=== PATIENT | male | born 1955 | race Hispanic/Latino ===

== ENCOUNTER 2018-02-24 15:45 | Observation (INO) | payer OTHER ==
[~2018-02-24] VITALS: Ht 177.8 cm; Wt 101.7 kg
[2018-02-24 15:05] VITALS: BP 187/95
[2018-02-24 15:15] LABS: BASOPHILS % (AUTO) 0.9 % (0.0-5.0); EOSINOPHILS % (AUTO) 1.8 % (0.0-8.0); HEMATOCRIT 45.5 % (42-54); LYMPHOCYTES % (AUTO) 41.5 % (21.0-51.0); MEAN CORPUSCULAR HEMOGLOBIN 28.4 pg (27.0-33.0); MEAN CORPUSCULAR HGB CONC 32.6 g/dL (32.0-36.0); MEAN CORPUSCULAR VOLUME 87.2 fL (79-99); MONOCYTES % (AUTO) 6.3 % (3.0-13.0); NEUTROPHILS % (AUTO) 49.5 % (40.0-77.0); NUCLEATED RED BLOOD CELLS 0.1 % (0.0-0.19); PLATELET COUNT (AUTO) 291 K/uL (130-400); RED BLOOD CELL COUNT(AUTO) 5.22 MIL/uL (4.50-6.20); RED CELL DISTRIBUTION WIDTH 14.6 % (11.0-15.5); WHITE BLOOD COUNT (AUTO) 9.4 K/uL (4.8-10.8)
[2018-02-24 15:18] LABS: APPEARANCE,URINE Clear (CLEAR); BILIRUBIN,URINE Negative (NEGATIVE); COLOR,URINE Yellow (YELLOW); GLUCOSE, URINE (UA) Negative (NEGATIVE); KETONES,URINE Negative (NEGATIVE); LEUKOCYTE ESTERASE ,URINE Negative (NEGATIVE); NITRATE,URINE Negative (NEGATIVE); OCCULT BLOOD,URINE Moderate (NEGATIVE); PROTEIN,URINE Negative (NEGATIVE); UROBILINOGEN,URINE 0.2 mg/dL (0.2-1.0)
[2018-02-24 15:23] LABS: CREATININE 2.1 mg/dL (0.5-1.5); POTASSIUM 4.5 mmol/L (3.5-5.1)
[2018-02-24 15:26] LABS: INR 0.95 (0.85-1.15)
[~2018-02-24 15:45] MED LIST: ATOR10TA69 PO; CHOL100040 PO; FOLI1TAB85 PO; SODI650T PO; VALS80TA30 PO
[2018-02-25] VITALS (22 sets, daily range): BP systolic 124–162; BP diastolic 56–105
[2018-02-25] MEDS ORDERED: ROCURONIUM 10MG/1ML SYR 10 MG/ML ML ONE ×2 (07:51→11:24)
[2018-02-25] MEDS ORDERED: SUCCINYLCHOLINE CHLORIDE 20 MG/ML 10 ML VIAL ONE (07:51)
[2018-02-25] MEDS ORDERED: PROPOFOL 10 MG/ML 20ML VIAL IV ONE (07:51)
[2018-02-25] MEDS ORDERED: LIDOCAINE PF 2% 5ML ABBOJECT ONE (07:51)
[2018-02-25] MEDS ORDERED: FENTANYL CITRATE PF 50 MCG/1 ML 2ML VIAL ONE ×2 (07:51→11:53)
[2018-02-25] MEDS ORDERED: LACTATED RINGERS 1000ML 1,000 ML IV ONE (08:22)
[2018-02-25] MEDS ORDERED: CEFAZOLIN SODIUM 1 GM VIAL ONE ×3 (08:22→09:32)
[2018-02-25] MEDS ORDERED: ACETAMINOPHEN EXTRA STRENGTH 500 MG TABLET ONE (08:25)
[2018-02-25] MEDS ORDERED: CELECOXIB 200 MG CAP ONE (08:25)
[2018-02-25] MEDS ORDERED: OXYCODONE HCL 10 MG TAB.SR.12H PO ONE (08:26)
[2018-02-25] MEDS ORDERED: CEFAZOLIN 3GM /D5W 100ML 100 ML IV ONE (08:30)
[2018-02-25] MEDS ORDERED: BUPIVACAINE/EPI/PF 0.25% 30ML VIAL IJ ONE (08:37)
[2018-02-25] MEDS ORDERED: TRANEXAMIC ACID 1000MG/10ML IV ONE (08:37)
[2018-02-25] MEDS ORDERED: ROPIVACAINE 0.5% 5MG/ML 30ML IJ ONE (10:11)
[2018-02-25] MEDS ORDERED: EPHEDRINE SULFATE 50 MG/ML AMPULE ONE (10:47)
[2018-02-25] MEDS ORDERED: DEXAMETHASONE SOD PHOSPHATE 10MG/ML 1ML VIAL ONE (12:14)
[2018-02-25] MEDS ORDERED: ONDANSETRON HCL 4 MG/2 ML VIAL ONE (12:14)
[2018-02-25] MEDS ORDERED: KETOROLAC TROMETHAMINE 30MG/ML ONE (12:14)
[2018-02-25] MEDS: SODIUM CHLORIDE 0.9% 1000ML 1,000 ML IV SCH (12:18)
[2018-02-25] MEDS ORDERED: GLYCOPYRROLATE 1 MG/5 ML SYRINGE ONE (12:19)
[2018-02-25] MEDS ORDERED: NEOSTIGMINE 5MG/5ML SYR IV ONE (12:19)
[2018-02-25] MEDS ORDERED: DiphenhydrAMINE HCL 50 MG/ML VIAL IVP PRN (12:30)
[2018-02-25] MEDS ORDERED: TEMAZEPAM 15 MG CAPSULE PO PRN (12:30)
[2018-02-25] MEDS ORDERED: TRAMADOL HCL 50 MG TABLET PO PRN (12:30)
[2018-02-25] MEDS ORDERED: POTASSIUM CHLORIDE 20MEQ/100ML 100 ML IV PRN (12:30)
[2018-02-25] MEDS ORDERED: FERROUS FUMARATE 324 MG TABLET PO PRN (12:30)
[2018-02-25] MEDS ORDERED: CALCIUM CARBONATE 500 MG TABLET PO PRN (12:30)
[2018-02-25] MEDS ORDERED: POTASSIUM CHLORIDE 20 MEQ ERTAB PO PRN (12:30)
[2018-02-25] MEDS ORDERED: LIDOCAINE HCL-MPF 1% 2ML VIAL IVP PRN (12:30)
[2018-02-25] MEDS ORDERED: POTASSIUM CHLORIDE 10% ELIXIR 20 MEQ/15 ML UDCUP PO PRN (12:30)
[2018-02-25] MEDS ORDERED: ONDANSETRON HCL 4 MG/2 ML VIAL IVP PRN (12:30)
[2018-02-25] MEDS ORDERED: FENTANYL CITRATE PF 50 MCG/1 ML 5ML AMP IV ONE (12:39)
[2018-02-25] MEDS ORDERED: MEPERIDINE-PF 25 MG/ML SYG ONE ×2 (13:23→13:35)
[2018-02-25] MEDS: OXYCODONE HCL 5 MG TAB PO PRN ×2 (15:04→20:23)
[2018-02-25] MEDS: FAMOTIDINE 20MG TAB 20 MG TAB PO SCH (15:21)
[2018-02-25] MEDS: ACETAMINOPHEN EXTRA STRENGTH 500 MG TABLET PO SCH ×2 (15:22→20:29)
[2018-02-25] MEDS: CEFAZOLIN 3GM /D5W 100ML 100 ML IV SCH (17:54)
[2018-02-25] MEDS: PREGABALIN 25 MG CAP PO SCH (20:21)
[2018-02-25] MEDS: ASPIRIN 325 MG TABLET PO SCH (20:21)
[2018-02-25] MEDS: CELECOXIB 200 MG CAP PO SCH (20:22)
[2018-02-25] MEDS: LOSARTAN 50 MG TABLET PO SCH (20:22)
[2018-02-25] MEDS ORDERED: ATORVASTATIN CALCIUM 10 MG TABLET PO SCH (21:00)
[2018-02-25] MEDS ORDERED: FOLIC ACID/VITAMIN B COMP W-C 1 MG CAPSULE PO SCH (21:00)
[2018-02-26 00:05] VITALS: BP 160/103
[2018-02-26] MEDS: CEFAZOLIN 3GM /D5W 100ML 100 ML IV SCH (01:08)
[2018-02-26] MEDS: SODIUM CHLORIDE 0.9% 1000ML 1,000 ML IV SCH ×2 (01:08→08:18)
[2018-02-26 04:06] LABS: HEMATOCRIT 37.5 % (42-54); MEAN CORPUSCULAR HEMOGLOBIN 28.8 pg (27.0-33.0); MEAN CORPUSCULAR HGB CONC 33.1 g/dL (32.0-36.0); MEAN CORPUSCULAR VOLUME 86.8 fL (79-99); PLATELET COUNT (AUTO) 209 K/uL (130-400); RED BLOOD CELL COUNT(AUTO) 4.32 MIL/uL (4.50-6.20); RED CELL DISTRIBUTION WIDTH 14.8 % (11.0-15.5); WHITE BLOOD COUNT (AUTO) 11.1 K/uL (4.8-10.8)
[2018-02-26 04:10] LABS: CREATININE 2.1 mg/dL (0.5-1.5); POTASSIUM 4.5 mmol/L (3.5-5.1)
[2018-02-26 04:45] VITALS: BP 160/95
[2018-02-26] MEDS: ACETAMINOPHEN EXTRA STRENGTH 500 MG TABLET PO SCH ×2 (04:45→13:07)
[2018-02-26 07:57] VITALS: BP 148/94
[2018-02-26] MEDS: CELECOXIB 200 MG CAP PO SCH (08:23)
[2018-02-26] MEDS: PREGABALIN 25 MG CAP PO SCH (08:24)
[2018-02-26] MEDS: FAMOTIDINE 20MG TAB 20 MG TAB PO SCH (08:24)
[2018-02-26] MEDS: ASPIRIN 325 MG TABLET PO SCH (08:25)
[2018-02-26] MEDS: LOSARTAN 50 MG TABLET PO SCH ×2 (08:25→13:07)
[2018-02-26] MEDS: OXYCODONE HCL 5 MG TAB PO PRN ×2 (08:25→13:08)
[2018-02-26] MEDS ORDERED: TAMSULOSIN HCL 0.4 MG CAP.ER.24H PO SCH (09:00)
[2018-02-26] MEDS ORDERED: POLYETHYLENE GLYCOL 3350 17 GM POWD.PACK PO SCH (09:00)
[2018-02-26] MEDS ORDERED: **HM**(Cholecalciferol (Vitamin D3) (Vitamin D3) 1,000 UNIT PO SCH (09:00)
[2018-02-26] MEDS ORDERED: SODIUM BICARBONATE 650 MG TAB PO SCH (09:00)
[2018-02-26 11:00] VITALS: BP 151/95
[2018-02-26 16:00] VITALS: BP 160/99
[2018-02-26] MEDS ORDERED: ASPI-1012 PO (19:03)
[2018-02-26] MEDS ORDERED: HYDR-4457 PO (19:03)
[2018-02-28] MEDS ORDERED: BISACODYL 10 MG SUPP.RECT RC PRN (12:30)
== END 2018-02-26 20:00 | disposition home health service (06) ==
LOC: EDSTATUS 15:45 → DAHIP 02-25 06:56 → 4BH 02-25 14:20
PROVIDERS: ADMIT Orthopaedic Surgery; ATTEND Orthopaedic Surgery
DX: M17.11 Unilateral primary osteoarthritis, right knee (principal); I10 Essential (primary) hypertension; E78.5 Hyperlipidemia, unspecified; M10.9 Gout, unspecified; G89.29 Other chronic pain
CPT/HCPCS: 27447; 36415 ×2; 80048 ×2; 81003; 85025; 85027; 85610; 85730; 88305; 88311; 96365; 96366; 97116 ×2; 97161; 97530 ×2; A4215; A4600; A4649 ×5; A4930 ×2; A9272; C1763; C1776; G0378 ×38; G8978; G8979; G8980; G8981; G8982; G8983; J0330; J0690 ×5; J1100; J1885; J2001; J2175 ×2; J2405; J2704; J2710; J2795; J3010 ×2; J3490 ×4; J7030; J7120

== ENCOUNTER 2018-09-10 18:57 | Inpatient (IN) | payer OTHER ==
[~2018-09-10] VITALS: Ht 175.3 cm; Wt 102.5 kg
[~2018-09-10 18:57] MED LIST changes: +ASPI-1012 PO; +HYDR-4457 PO
[2018-09-10 19:45] VITALS: BP 133/85
[2018-09-10] MEDS ORDERED: AMLO5TAB9 PO (19:50)
[2018-09-10] MEDS ORDERED: CYCL50CA3 PO (19:50)
[2018-09-10] MEDS ORDERED: DEXA4TAB PO (19:50)
[2018-09-10] MEDS ORDERED: ALLO100T PO (19:50)
[2018-09-10] MEDS ORDERED: HYDROCODONE/ACETAMINOPHEN 5/325 MG TAB ONE (20:02)
[2018-09-10 20:58] LABS: INR 0.95 (0.85-1.15); PARTIAL THROMBOPLASTIN TIME 26.4 SEC (26.3-35.5)
[2018-09-10] MEDS: ATORVASTATIN CALCIUM 10 MG TABLET PO SCH (21:00)
[2018-09-10] MEDS ORDERED: LOSARTAN 50 MG TABLET PO SCH (21:00)
[2018-09-10] MEDS: FOLIC ACID/VITAMIN B COMP W-C 1 MG CAPSULE PO SCH (21:00)
[2018-09-10 21:02] LABS: ALBUMIN 2.8 g/dL (3.5-5.0); BILIRUBIN,TOTAL 0.3 mg/dL (0.2-1.0); CREATININE 2.1 mg/dL (0.5-1.5); POTASSIUM 3.7 mmol/L (3.5-5.1)
[2018-09-10] MEDS ORDERED: SODIUM CHLORIDE 0.9% 1000ML 1,000 ML IV SCH (21:15)
[2018-09-10] MEDS ORDERED: MORPHINE SULFATE 2 MG/ML 1ML SYG IVP PRN (21:15)
[2018-09-10] MEDS ORDERED: HYDROCODONE/ACETAMINOPHEN 5/325 MG TAB PO PRN ×2 (21:15)
[2018-09-10] MEDS ORDERED: ACETAMINOPHEN 325 MG TAB PO PRN (21:15)
[2018-09-10] MEDS ORDERED: ENOXAPARIN SODIUM 30 MG/0.3 ML SQ SCH (21:15)
[2018-09-10] MEDS ORDERED: PHARMACY COMMUNICATION MISC SCH (21:15)
[2018-09-10] MEDS ORDERED: ONDANSETRON HCL 4 MG/2 ML VIAL IVP PRN (21:15)
[2018-09-10] MEDS: SODIUM BICARBONATE 650 MG TAB PO SCH (22:18)
[2018-09-10 23:28] VITALS: BP 97/38
[2018-09-11] VITALS (20 sets, daily range): BP systolic 113–172; BP diastolic 71–104
--- NOTE | 2018-09-11 08:06 | NUR ---
NOTIFIED DR PENNINGTON OF CONSULT VIA TELEPHONE.
[2018-09-11] MEDS: LOSARTAN 50 MG TABLET PO SCH (08:31)
[2018-09-11] MEDS: AMLODIPINE BESYLATE 5 MG TAB PO SCH (08:31)
[2018-09-11] MEDS: CHOLECALCIFEROL 1000 UNIT PO SCH (08:31)
[2018-09-11] MEDS: ALLOPURINOL 100 MG TABLET PO SCH (08:32)
[2018-09-11] MEDS: SODIUM BICARBONATE 650 MG TAB PO SCH ×2 (08:32→22:42)
[2018-09-11] MEDS ORDERED: PANTOPRAZOLE SODIUM 40 MG TABLET.DR PO SCH (09:00)
--- NOTE | 2018-09-11 12:48 | NUR ---
DC PLAN VISITED WITH PATIENT. PATIENT LIVES ALONE. INDEPENDENT ABLE TO PERFORM ADL'S. PATIENT HAS NO SERVICES. WALKER AT HOME. FEELS SAFE TO RETURN HOME. Addendum: 09/11/18 at 1250 by JESUS MANUEL MORENO RN CM Amended: Links added.
[2018-09-11] MEDS ORDERED: CEFAZOLIN SODIUM 1 GM VIAL ONE (14:23)
[2018-09-11] MEDS ORDERED: VANCOMYCIN HCL 1 GM VIAL ONE ×2 (14:23→16:21)
--- NOTE | 2018-09-11 15:00 | NUR ---
Pt admitted to drinking "1/2 cup" h2o @ 1315, even though he knew he was NPO for surgery. Reported to Dr. Parham who stated it would not interfere with surgery.
--- NOTE | 2018-09-11 15:05 | NUR ---
Pt wheeled via hospital bed to OR Holding by OR staff. Pt in stable condition at time of transfer. Accompanied by family member.
[2018-09-11] MEDS ORDERED: TRANEXAMIC ACID 1000MG/10ML IV ONE (15:44)
[2018-09-11] MEDS ORDERED: VANCOMYCIN PROTOCOL PER PHARMACY IV SCH (16:00)
[2018-09-11] MEDS ORDERED: SUCCINYLCHOLINE 200MG/10ML SYR ONE (16:11)
[2018-09-11] MEDS ORDERED: LIDOCAINE PF 2% 5ML ABBOJECT ONE (16:11)
[2018-09-11] MEDS ORDERED: PROPOFOL 10 MG/ML 20ML VIAL IV ONE (16:11)
[2018-09-11] MEDS ORDERED: ROCURONIUM 10MG/1ML SYR 10 MG/ML ML ONE ×2 (16:12→19:08)
[2018-09-11] MEDS ORDERED: FENTANYL CITRATE PF 50 MCG/1 ML 2ML VIAL ONE ×3 (16:12→20:01)
[2018-09-11] MEDS ORDERED: HYDROMORPHONE 1 MG/1 ML AMP ONE (16:18)
[2018-09-11] MEDS ORDERED: MIDAZOLAM HCL 1 MG/ML 2ML VIAL ONE (16:19)
[2018-09-11] MEDS ORDERED: VANCOMYCIN 1GM+NS 250ML 250 ML IV ONE (16:31)
[2018-09-11] MEDS ORDERED: COMPOUND IV REFRIGERATED 1 EACH IVSOLN MISC PRN (16:45)
[2018-09-11] MEDS ORDERED: NEOSTIGMINE 5MG/5ML SYR IV ONE (19:53)
[2018-09-11] MEDS ORDERED: GLYCOPYRROLATE 1 MG/5 ML SYRINGE ONE (19:53)
[2018-09-11] MEDS ORDERED: KETOROLAC TROMETHAMINE 30MG/ML ONE (19:55)
[2018-09-11] MEDS ORDERED: ONDANSETRON HCL 4 MG/2 ML VIAL ONE (19:59)
[2018-09-11] MEDS ORDERED: LIDOCAINE HCL-MPF 1% 2ML VIAL IVP PRN (20:00)
[2018-09-11] MEDS ORDERED: DiphenhydrAMINE HCL 50 MG/ML VIAL IVP PRN (20:00)
[2018-09-11] MEDS ORDERED: POTASSIUM CHLORIDE 10% ELIXIR 20 MEQ/15 ML UDCUP PO PRN (20:00)
[2018-09-11] MEDS ORDERED: POTASSIUM CHLORIDE 20MEQ/100ML 100 ML IV PRN (20:00)
[2018-09-11] MEDS ORDERED: ONDANSETRON HCL 4 MG/2 ML VIAL IVP PRN (20:00)
[2018-09-11] MEDS ORDERED: CALCIUM CARBONATE 500 MG TABLET PO PRN (20:00)
[2018-09-11] MEDS ORDERED: POTASSIUM CHLORIDE 20 MEQ ERTAB PO PRN (20:00)
[2018-09-11] MEDS ORDERED: FERROUS FUMARATE 324 MG TABLET PO PRN (20:00)
[2018-09-11] MEDS ORDERED: OXYCODONE HCL 5 MG TAB PO PRN (20:00)
[2018-09-11] MEDS ORDERED: TRAMADOL HCL 50 MG TABLET PO PRN (20:00)
[2018-09-11] MEDS ORDERED: TEMAZEPAM 15 MG CAPSULE PO PRN (20:00)
[2018-09-11] MEDS ORDERED: HYDRALAZINE HCL 20 MG/ML VIAL ONE (20:29)
[2018-09-11] MEDS ORDERED: ACETAMINOPHEN 325 MG TAB PO PRN (21:00)
[2018-09-11 21:19] LABS: APPEARANCE BODY FLUID CLOUDY (CLEAR); COLOR,BODY FLUID DARK YELLOW (LT YELLOW); SPECIMENTYPE,BODY FLUID SYNOVIAL; TOTAL VOLUME,BODY FLUID 28 mL
[2018-09-11 21:22] LABS: BODY FLUID RBC 2650 /cu. mm.; BODY FLUID WBC 6998 /cu. mm.
[2018-09-11 21:42] LABS: BF LYMPHOCYTE 3 %
[2018-09-11] MEDS: ATORVASTATIN CALCIUM 10 MG TABLET PO SCH (22:42)
[2018-09-11] MEDS: FOLIC ACID/VITAMIN B COMP W-C 1 MG CAPSULE PO SCH (22:42)
[2018-09-11] MEDS: ASPIRIN 325 MG TABLET PO SCH (22:42)
[2018-09-11] MEDS: CELECOXIB 200 MG CAP PO SCH (22:42)
[2018-09-11] MEDS: PREGABALIN 25 MG CAP PO SCH (22:42)
[2018-09-11] MEDS: ACETAMINOPHEN EXTRA STRENGTH 500 MG TABLET PO SCH (22:48)
[2018-09-12] VITALS (9 sets, daily range): BP systolic 104–149; BP diastolic 61–86
[2018-09-12] MEDS: CEFEPIME HCL 1 GM VIAL IVP SCH ×3 (01:00→15:43)
[2018-09-12] MEDS: SODIUM CHLORIDE 0.9% 1000ML 1,000 ML IV SCH ×3 (01:01→15:44)
[2018-09-12 04:07] LABS: BASOPHILS % (AUTO) 0.3 % (0.0-5.0); EOSINOPHILS % (AUTO) 0.3 % (0.0-8.0); HEMATOCRIT 31.9 % (42-54); LYMPHOCYTES % (AUTO) 15.2 % (21.0-51.0); MEAN CORPUSCULAR HGB CONC 33.5 g/dL (32.0-36.0); MEAN CORPUSCULAR VOLUME 89.4 fL (79-99); MONOCYTES % (AUTO) 6.8 % (3.0-13.0); NEUTROPHILS % (AUTO) 77.4 % (40.0-77.0); PLATELET COUNT (AUTO) 188 K/uL (130-400); RED BLOOD CELL COUNT(AUTO) 3.57 MIL/uL (4.50-6.20); RED CELL DISTRIBUTION WIDTH 16.7 % (11.0-15.5); WHITE BLOOD COUNT (AUTO) 7.5 K/uL (4.8-10.8)
[2018-09-12 04:17] LABS: CREATININE 1.8 mg/dL (0.5-1.5); POTASSIUM 4.2 mmol/L (3.5-5.1)
[2018-09-12] MEDS: ACETAMINOPHEN EXTRA STRENGTH 500 MG TABLET PO SCH ×3 (04:35→20:43)
[2018-09-12 05:11] LABS: ERYTHROCYTE SEDIMENTATION RATE 50 MM/HR (0-20)
[2018-09-12] MEDS: CHOLECALCIFEROL 1000 UNIT PO SCH (09:00)
[2018-09-12] MEDS: ASPIRIN 325 MG TABLET PO SCH ×2 (09:41→20:40)
[2018-09-12] MEDS: LOSARTAN 50 MG TABLET PO SCH (09:42)
[2018-09-12] MEDS: TAMSULOSIN HCL 0.4 MG CAP.ER.24H PO SCH (09:42)
[2018-09-12] MEDS: SODIUM BICARBONATE 650 MG TAB PO SCH ×2 (09:42→20:39)
[2018-09-12] MEDS: AMLODIPINE BESYLATE 5 MG TAB PO SCH (09:42)
[2018-09-12] MEDS: CELECOXIB 200 MG CAP PO SCH ×2 (09:42→20:40)
[2018-09-12] MEDS: PREGABALIN 25 MG CAP PO SCH ×2 (09:42→20:39)
[2018-09-12] MEDS: FAMOTIDINE 20MG TAB 20 MG TAB PO SCH (09:42)
[2018-09-12] MEDS: POLYETHYLENE GLYCOL 3350 17 GM POWD.PACK PO SCH (09:42)
[2018-09-12] MEDS: ALLOPURINOL 100 MG TABLET PO SCH (09:42)
[2018-09-12] MEDS: VANCOMYCIN 1.5 GM in SODIUM CHLORIDE 0.9% 250 ML IV SCH (15:44)
[2018-09-12] MEDS: ATORVASTATIN CALCIUM 10 MG TABLET PO SCH (20:39)
[2018-09-12] MEDS: FOLIC ACID/VITAMIN B COMP W-C 1 MG CAPSULE PO SCH (20:40)
[2018-09-13] MEDS: CEFEPIME HCL 1 GM VIAL IVP SCH ×3 (01:01→21:17)
[2018-09-13 03:14] VITALS: BP 117/71
[2018-09-13] MEDS: ACETAMINOPHEN EXTRA STRENGTH 500 MG TABLET PO SCH ×3 (03:52→21:14)
[2018-09-13 08:00] VITALS: BP 93/51
[2018-09-13] MEDS: LOSARTAN 50 MG TABLET PO SCH (08:07)
[2018-09-13] MEDS: AMLODIPINE BESYLATE 5 MG TAB PO SCH (08:08)
[2018-09-13] MEDS: ASPIRIN 325 MG TABLET PO SCH (08:13)
[2018-09-13] MEDS: CELECOXIB 200 MG CAP PO SCH ×2 (08:13→21:13)
[2018-09-13] MEDS: PREGABALIN 25 MG CAP PO SCH ×2 (08:13→21:14)
[2018-09-13] MEDS: SODIUM BICARBONATE 650 MG TAB PO SCH ×2 (08:14→21:13)
[2018-09-13] MEDS: POLYETHYLENE GLYCOL 3350 17 GM POWD.PACK PO SCH (08:14)
[2018-09-13] MEDS: FAMOTIDINE 20MG TAB 20 MG TAB PO SCH (08:14)
[2018-09-13] MEDS: TAMSULOSIN HCL 0.4 MG CAP.ER.24H PO SCH (08:17)
[2018-09-13] MEDS: CHOLECALCIFEROL 1000 UNIT PO SCH (08:18)
[2018-09-13] MEDS: ALLOPURINOL 100 MG TABLET PO SCH (08:42)
--- NOTE | 2018-09-13 11:30 | NUR ---
RASH RASH NOTED TO BILATERAL UPPER THIGH AREA AND SPREADS TO LOWER ABDOMEN AND LOWER TRUNK. PATIENT REPORTS NO ITCHING, BURNING, OR DISCOMFORTS. PATIENT STATES "I ONLY NOTICED IT WAS THERE BY SEEING IT, BUT I DON'T FEEL ANYTHING." PATIENT REPORTS USING SOAP TO AREA AND REPORTS HISTORY OF SENSITIVITY TO CERTAIN BODY SOAPS. CALLED DR. AARON TO REPORT PATIENT SYMPTOMS. MD REPLIED TO CONTINUE TO MONITOR RASH AND LESA THE AREA TO NOTE IF ITS SPREADING. USED BLACK MARKER TO LESA RASH AT CONCENTRATED AREAS.
[2018-09-13 11:39] VITALS: BP 145/85
--- NOTE | 2018-09-13 13:30 | NUR ---
WOUND DRESSING PERFORMED RIGHT KNEE DRESSING CHANGE PER MD ORDER. REMOVED HEMOVAC, DRAIN TIP INTACT. PATIENT TOLERATED PROCEDURE WELL. REAPPLIED TARA BANDAGE AFTER DRESSING CHANGE.
--- NOTE | 2018-09-13 15:00 | NUR ---
PICC LINE PATIENT CURRENTLY GETTING PICC LINE PLACED
--- NOTE | 2018-09-13 15:45 | NUR ---
5 Fr 2 lumen Picc line placed to right basilic vein. Good blood return and flushed without any resistance. Chest X ray obtained, pending interpretation from radiologist.
[2018-09-13 16:00] VITALS: BP 135/72
--- NOTE | 2018-09-13 16:00 | NUR ---
Report on the Picc line was given to primary care nurse Valentina CAMPOS
--- NOTE | 2018-09-13 16:25 | NUR ---
Spoke to Dr Parham and informed of Picc line placement, he ok'ed to use it
[2018-09-13] MEDS: VANCOMYCIN 1.5 GM in SODIUM CHLORIDE 0.9% 250 ML IV SCH (17:13)
--- NOTE | 2018-09-13 17:40 | NUR ---
D/C PLAN CM spoke to pt regarding d/c planning. 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 Pt prefers to d/c home with home health. CM explained that if d/c with IV Vanco, will more than likely recommend [facility]. Pt and spouse voiced difficulty in transporting due to mobility. CM offered in network short term snf/rehab options as well. Pt and family undecided about plan. CM to f/u once final abx recommendations made by ID. Addendum: 09/13/18 at 1743 by RASHAUN DESIR CM Amended: Links added.
[2018-09-13 19:25] VITALS: BP 136/72
[2018-09-13] MEDS: APIXABAN 2.5 MG TABLET PO SCH (21:13)
[2018-09-13] MEDS: FOLIC ACID/VITAMIN B COMP W-C 1 MG CAPSULE PO SCH (21:13)
[2018-09-13] MEDS: ATORVASTATIN CALCIUM 10 MG TABLET PO SCH (21:13)
[2018-09-13 23:36] VITALS: BP 154/80
[2018-09-14 03:49] VITALS: BP 150/90
[2018-09-14] MEDS: CEFEPIME HCL 1 GM VIAL IVP SCH ×3 (04:53→19:31)
[2018-09-14] MEDS: ACETAMINOPHEN EXTRA STRENGTH 500 MG TABLET PO SCH ×3 (04:56→19:32)
[2018-09-14 05:22] LABS: BASOPHILS % (AUTO) 1.1 % (0.0-5.0); EOSINOPHILS % (AUTO) 2.4 % (0.0-8.0); HEMATOCRIT 31.2 % (42-54); MEAN CORPUSCULAR HEMOGLOBIN 29.7 pg (27.0-33.0); MEAN CORPUSCULAR HGB CONC 33.3 g/dL (32.0-36.0); MEAN CORPUSCULAR VOLUME 89.2 fL (79-99); MONOCYTES % (AUTO) 6.9 % (3.0-13.0); NEUTROPHILS % (AUTO) 64.6 % (40.0-77.0); NUCLEATED RED BLOOD CELLS 0.1 % (0.0-0.19); PLATELET COUNT (AUTO) 214 K/uL (130-400); RED BLOOD CELL COUNT(AUTO) 3.49 MIL/uL (4.50-6.20); RED CELL DISTRIBUTION WIDTH 16.9 % (11.0-15.5); WHITE BLOOD COUNT (AUTO) 5.6 K/uL (4.8-10.8)
[2018-09-14 05:29] LABS: CREATININE 1.9 mg/dL (0.5-1.5); POTASSIUM 3.9 mmol/L (3.5-5.1)
[2018-09-14 08:00] VITALS: BP 152/88
--- NOTE | 2018-09-14 08:00 | NUR ---
dr. oglesby aware of pt's rash - and redness stated might be due to using soap yesterday stated , no more soap to that area, just water will continue to monitor
[2018-09-14] MEDS: POLYETHYLENE GLYCOL 3350 17 GM POWD.PACK PO SCH (08:25)
[2018-09-14] MEDS: APIXABAN 2.5 MG TABLET PO SCH ×2 (08:26→19:33)
[2018-09-14] MEDS: SODIUM BICARBONATE 650 MG TAB PO SCH ×2 (08:27→19:31)
[2018-09-14] MEDS: AMLODIPINE BESYLATE 5 MG TAB PO SCH (08:27)
[2018-09-14] MEDS: PREGABALIN 25 MG CAP PO SCH ×2 (08:27→19:33)
[2018-09-14] MEDS: FAMOTIDINE 20MG TAB 20 MG TAB PO SCH (08:27)
[2018-09-14] MEDS: CELECOXIB 200 MG CAP PO SCH ×2 (08:27→19:33)
[2018-09-14] MEDS: ALLOPURINOL 100 MG TABLET PO SCH (08:27)
[2018-09-14] MEDS: TAMSULOSIN HCL 0.4 MG CAP.ER.24H PO SCH (08:28)
[2018-09-14] MEDS: LOSARTAN 50 MG TABLET PO SCH (08:28)
[2018-09-14] MEDS: CHOLECALCIFEROL 1000 UNIT PO SCH (08:37)
[2018-09-14 11:00] VITALS: BP 147/92
--- NOTE | 2018-09-14 13:51 | NUR ---
DR. MERRITT ROUNDED, AWARE OF PT'S RASH STATED WILL KEEP PATIENT TODAY, AND MONITOR THE RASH TO RULE OUT AN ADVERSE REACTION TO THE ANTIBIOTICS
[2018-09-14 16:00] VITALS: BP 124/71
[2018-09-14] MEDS: VANCOMYCIN 1.5 GM in SODIUM CHLORIDE 0.9% 250 ML IV SCH (16:58)
--- NOTE | 2018-09-14 18:35 | NUR ---
DR. AARON STATED TO D/C THE ROUTINE LABS ON THIS PATIENT EXCEPT THE ONES NEEDED FOR ANTIBIOTIC THERAPEUTIC RANGE
[2018-09-14] MEDS: FOLIC ACID/VITAMIN B COMP W-C 1 MG CAPSULE PO SCH (19:33)
[2018-09-14 19:35] VITALS: BP 144/82
[2018-09-14] MEDS: ATORVASTATIN CALCIUM 10 MG TABLET PO SCH (19:35)
[2018-09-14] MEDS ORDERED: BISACODYL 10 MG SUPP.RECT RC PRN (20:00)
[2018-09-14 23:14] VITALS: BP 131/75
[2018-09-14] MEDS: OXYCODONE HCL 5 MG TAB PO PRN (23:24)
[2018-09-15 03:50] VITALS: BP 142/87
[2018-09-15 04:39] LABS: HEMATOCRIT 30.2 % (42-54); MEAN CORPUSCULAR HEMOGLOBIN 30.4 pg (27.0-33.0); MEAN CORPUSCULAR VOLUME 89.4 fL (79-99); PLATELET COUNT (AUTO) 260 K/uL (130-400); RED BLOOD CELL COUNT(AUTO) 3.38 MIL/uL (4.50-6.20); RED CELL DISTRIBUTION WIDTH 16.8 % (11.0-15.5); WHITE BLOOD COUNT (AUTO) 6.1 K/uL (4.8-10.8)
[2018-09-15] MEDS: CEFEPIME HCL 1 GM VIAL IVP SCH ×3 (04:45→19:29)
[2018-09-15] MEDS: ACETAMINOPHEN EXTRA STRENGTH 500 MG TABLET PO SCH ×3 (04:46→19:31)
[2018-09-15 04:51] LABS: CREATININE 1.7 mg/dL (0.5-1.5); POTASSIUM 4.2 mmol/L (3.5-5.1)
[2018-09-15 08:00] VITALS: BP 144/84
[2018-09-15] MEDS: POLYETHYLENE GLYCOL 3350 17 GM POWD.PACK PO SCH (08:06)
[2018-09-15] MEDS: PREGABALIN 25 MG CAP PO SCH ×2 (08:07→19:31)
[2018-09-15] MEDS: SODIUM BICARBONATE 650 MG TAB PO SCH ×2 (08:07→19:30)
[2018-09-15] MEDS: CELECOXIB 200 MG CAP PO SCH ×2 (08:07→19:31)
[2018-09-15] MEDS: LOSARTAN 50 MG TABLET PO SCH (08:07)
[2018-09-15] MEDS: ALLOPURINOL 100 MG TABLET PO SCH (08:07)
[2018-09-15] MEDS: AMLODIPINE BESYLATE 5 MG TAB PO SCH (08:07)
[2018-09-15] MEDS: APIXABAN 2.5 MG TABLET PO SCH ×2 (08:07→19:31)
[2018-09-15] MEDS: TAMSULOSIN HCL 0.4 MG CAP.ER.24H PO SCH (08:08)
[2018-09-15] MEDS: FAMOTIDINE 20MG TAB 20 MG TAB PO SCH (08:11)
--- NOTE | 2018-09-15 08:15 | NUR ---
DRESSING CHANGED PERFORMED PT TOLERATED PROCEDURE WELL NO SIGNS OF INFECTION, NOR ACTIVE BLEEDING NOTED. WILL CONTINUE TO MONITOR PT
[2018-09-15] MEDS: CHOLECALCIFEROL 1000 UNIT PO SCH (09:00)
--- NOTE | 2018-09-15 10:51 | NUR ---
DC PLAN VISITED WITH PATIENT. SIGNED [facility] FOR [facility]. ASKED DR. Barnes ABOUT HOME HEALTH SAID HE NEVER GIVES VANCO AT HOME. [facility] OR SNF. INFO SENT TO U AND TO INSURANCE. PENDING AUTH AND CHAIR TIME. Addendum: 09/15/18 at 1053 by JESUS MANUEL MORENO RN CM Amended: Links added.
[2018-09-15 11:00] VITALS: BP 138/86
[2018-09-15] MEDS ORDERED: FERR324T10 PO (14:28)
[2018-09-15] MEDS ORDERED: FAMO20TA8 PO (14:28)
[2018-09-15] MEDS ORDERED: LOSA50TA2 PO ×2 (14:28→14:30)
[2018-09-15] MEDS ORDERED: APIX2.5T PO (14:28)
[2018-09-15] MEDS: VANCOMYCIN 1.5 GM in SODIUM CHLORIDE 0.9% 250 ML IV SCH (15:42)
[2018-09-15 16:00] VITALS: BP 126/69
--- NOTE | 2018-09-15 18:37 | NUR ---
DR. AARON MADE AWARE THAT PER CASE MANAGEMENT PT [facility] WILL NOT HAVE A SPOT AVAILABLE UNTIL FRIDAY AT 13:[address] AARON STATED D/C PLAN FOR TOMORROW AFTER PT GETS HIS ANTIBIOTIC DOSE
[2018-09-15 19:30] VITALS: BP 150/73
[2018-09-15] MEDS: ATORVASTATIN CALCIUM 10 MG TABLET PO SCH (19:31)
[2018-09-15] MEDS: FOLIC ACID/VITAMIN B COMP W-C 1 MG CAPSULE PO SCH (19:31)
[2018-09-15] MEDS: OXYCODONE HCL 5 MG TAB PO PRN (23:25)
[2018-09-15 23:30] VITALS: BP 143/80
[2018-09-16] MEDS: ACETAMINOPHEN EXTRA STRENGTH 500 MG TABLET PO SCH ×3 (03:14→20:00)
[2018-09-16] MEDS: CEFEPIME HCL 1 GM VIAL IVP SCH ×3 (03:14→20:53)
[2018-09-16 03:25] VITALS: BP 126/85
[2018-09-16 08:00] VITALS: BP 147/79
[2018-09-16] MEDS: ALLOPURINOL 100 MG TABLET PO SCH (08:15)
[2018-09-16] MEDS: PREGABALIN 25 MG CAP PO SCH ×2 (08:15→20:54)
[2018-09-16] MEDS: POLYETHYLENE GLYCOL 3350 17 GM POWD.PACK PO SCH (08:15)
[2018-09-16] MEDS: APIXABAN 2.5 MG TABLET PO SCH ×2 (08:15→20:54)
[2018-09-16] MEDS: TAMSULOSIN HCL 0.4 MG CAP.ER.24H PO SCH (08:15)
[2018-09-16] MEDS: AMLODIPINE BESYLATE 5 MG TAB PO SCH (08:15)
[2018-09-16] MEDS: CELECOXIB 200 MG CAP PO SCH ×2 (08:15→20:54)
[2018-09-16] MEDS: FAMOTIDINE 20MG TAB 20 MG TAB PO SCH (08:15)
[2018-09-16] MEDS: SODIUM BICARBONATE 650 MG TAB PO SCH ×2 (08:15→20:54)
[2018-09-16] MEDS: LOSARTAN 50 MG TABLET PO SCH (08:15)
[2018-09-16] MEDS: CHOLECALCIFEROL 1000 UNIT PO SCH (08:22)
[2018-09-16 11:00] VITALS: BP 135/82
[2018-09-16 16:00] VITALS: BP 127/83
[2018-09-16] MEDS: VANCOMYCIN 1.5 GM in SODIUM CHLORIDE 0.9% 250 ML IV SCH (16:09)
--- NOTE | 2018-09-16 16:51 | NUR ---
MD BAZZI- VISITED WITH PATIENT. POC DISCUSSED. NEW ORDERS RECEIVED AND CARRIED OUT. VITALS STABLE. AFEBRILE. TOLERATING IV ABT WELL. NO ADVERSE REACTIONS NOTED. MAY DISCHARGE AFTER 1999 IV ABT GIVEN. PATIENT AWARE. PENDING HOME HEALTH SET UP. HOB ELEVATED. CALL LIGHT WITHIN REACH. WILL CONTINUE TO BE OBSERVED. CALL LIGHT WITHIN REACH. Addendum: 09/16/18 at 1653 by GAIL BASHIR RN RN Amended: Links added.
[2018-09-16] MEDS ORDERED: HYDR-4457 PO (17:27)
--- NOTE | 2018-09-16 17:38 | NUR ---
DC PLAN VISITED WITH PATIENT. PATIENT GAVE OKAY TO SEND REFERRAL TO [facility]. INFO SENT. SPOKE TO REP SAID PATIENT ACCEPTED WILL SEE PATIENT TOMORROW ALREADY SET UP APPOINTMENT WITH SPOUSE. LET NURSE AND MD KNOW. DC PLAN FOR TODAY. Addendum: 09/16/18 at 1740 by JESUS MANUEL MORENO RN CM Amended: Links added.
--- NOTE | 2018-09-16 18:00 | NUR ---
MD JLUIS PACHECO VISITED WITH PATIENT. POC DISCUSSED. NEW ORDERS RECEIVED AND CARRIED OUT. DISCHARGE PLAN THIS PM. PATIENT AWARE. Addendum: 09/16/18 at 2129 by GAIL BASHIR RN RN Amended: Links added.
[2018-09-16 19:47] VITALS: BP 121/75
[2018-09-16] MEDS: ATORVASTATIN CALCIUM 10 MG TABLET PO SCH (20:53)
[2018-09-16] MEDS: FOLIC ACID/VITAMIN B COMP W-C 1 MG CAPSULE PO SCH (20:54)
--- NOTE | 2018-09-16 21:23 | NUR ---
DISCHARGE PATIENT GIVEN DISCHARGE INSTRUCTIONS AND EDUCATION, INCLUDING SIDE EFFECTS ON NEW PRESCRIBED MEDICATIONS AND FOLLOW UP APPOINTMENT. PATIENT AND SPOUSE AT BEDSIDE VERBALIZED UNDERSTANDING OF ALL EDUCATION GIVEN VIA TEACH BACK. NO QUESTIONS OR CONCERNS VOICED AT THIS TIME. PICC LINE PATENT WITH BRISK BLOOD RETURN NOTED. IMMOBILIZER IN PLACE. REPORT GIVEN TO SYL AT [facility]. PATIENT LEFT VIA WHEELCHAIR. WITH SPOUSE AT SIDE TO PRIVATE CAR, ALL BELONGINGS TAKEN WITH. Addendum: 09/16/18 at 2127 by GAIL BASHIR RN RN Amended: Links added.
== END 2018-09-16 21:05 | disposition home health service (06) | DRG 464 ==
LOC: EDH 18:57 → 4AH 19:05
PROVIDERS: ADMIT Orthopaedic Surgery; ATTEND Orthopaedic Surgery
PROC: 0SPC08Z Removal of Spacer from Right Knee Joint, Open Approach (ICD-10-PCS; 2018-09-11)
PROC: 0SBC0ZZ Excision of Right Knee Joint, Open Approach (ICD-10-PCS; 2018-09-11)
PROC: 0SPC0JZ Removal of Synthetic Substitute from Right Knee Joint, Open Approach (ICD-10-PCS; principal; 2018-09-11 14:40)
PROC: 0SHC08Z Insertion of Spacer into Right Knee Joint, Open Approach (ICD-10-PCS; 2018-09-11 14:40)
PROC: 02HV33Z Insertion of Infusion Device into Superior Vena Cava, Percutaneous Approach (ICD-10-PCS; 2018-09-13)
DX: T84.53XA Infection and inflammatory reaction due to internal right knee prosthesis, initial encounter (principal); C90.00 Multiple myeloma not having achieved remission; M25.461 Effusion, right knee; D64.9 Anemia, unspecified; E66.9 Obesity, unspecified; E78.5 Hyperlipidemia, unspecified; G35 Multiple sclerosis; I10 Essential (primary) hypertension; M10.9 Gout, unspecified; M19.90 Unspecified osteoarthritis, unspecified site; Z96.653 Presence of artificial knee joint, bilateral; N19 Unspecified kidney failure; Y83.1 Surgical operation with implant of artificial internal device as the cause of abnormal reaction of the patient, or of later complication, without mention of misadventure at the time of the procedure; Z80.0 Family history of malignant neoplasm of digestive organs; Z82.49 Family history of ischemic heart disease and other diseases of the circulatory system; Z92.21 Personal history of antineoplastic chemotherapy; Z79.899 Other long term (current) drug therapy; Z68.33 Body mass index [BMI] 33.0-33.9, adult
CPT/HCPCS: 36415; 71045; 80048; 80053; 80202; 85025; 85027; 85610; 85651; 85730; 86140; 86850; 86900; 86901; 87070; 87076; 87116; 87205; 87206; 87556; 89051; 97039; A4218; G0378; J0330; J0360; J0690; J0692; J1170; J1650; J1885; J2001; J2250; J2405; J2704; J2710; J3010; J3370; J3490; J7030

== ENCOUNTER → 2018-10-28 19:00 | Inpatient (IN) | payer OTHER ==
[2018-10-23 15:51] LABS: BASOPHILS % (AUTO) 1.6 % (0.0-5.0); EOSINOPHILS % (AUTO) 1.8 % (0.0-8.0); HEMATOCRIT 36.9 % (42-54); LYMPHOCYTES % (AUTO) 29.3 % (21.0-51.0); MEAN CORPUSCULAR HEMOGLOBIN 28.5 pg (27.0-33.0); MEAN CORPUSCULAR HGB CONC 33.1 g/dL (32.0-36.0); MEAN CORPUSCULAR VOLUME 86.1 fL (79-99); MONOCYTES % (AUTO) 7.8 % (3.0-13.0); NEUTROPHILS % (AUTO) 59.5 % (40.0-77.0); NUCLEATED RED BLOOD CELLS 0.1 % (0.0-0.19); PLATELET COUNT (AUTO) 281 K/uL (130-400); RED BLOOD CELL COUNT(AUTO) 4.29 MIL/uL (4.50-6.20); RED CELL DISTRIBUTION WIDTH 18.1 % (11.0-15.5)
[2018-10-23 15:54] LABS: BILIRUBIN,URINE Negative (NEGATIVE); COLOR,URINE Yellow (YELLOW); GLUCOSE, URINE (UA) Negative (NEGATIVE); KETONES,URINE Negative (NEGATIVE); LEUKOCYTE ESTERASE ,URINE Moderate (NEGATIVE); NITRATE,URINE Negative (NEGATIVE); OCCULT BLOOD,URINE Small (NEGATIVE); PH,URINE 6.5 (5.0-8.0); PROTEIN,URINE Trace mg/dL (NEGATIVE); UROBILINOGEN,URINE 0.2 mg/dL (0.2-1.0)
[2018-10-23 15:55] LABS: APPEARANCE,URINE SLIGHTLY CLOUDY (CLEAR)
[2018-10-23 16:01] LABS: INR 0.95 (0.85-1.15); PARTIAL THROMBOPLASTIN TIME 26.9 SEC (26.3-35.5)
[2018-10-23 16:02] LABS: BACTERIA,URINE Few /HPF (None Seen)
[2018-10-23 16:03] LABS: MUCUS,URINE Rare LPF (None Seen); SQUAMOUS EPITHELIAL CELL,UR Rare /HPF (0-2)
[2018-10-23 16:06] VITALS: BP 127/68
[2018-10-23 16:06] LABS: CREATININE 2.3 mg/dL (0.5-1.5); POTASSIUM 4.2 mmol/L (3.5-5.1)
[2018-10-26] VITALS (20 sets, daily range): BP systolic 104–146; BP diastolic 60–87
[2018-10-26] MEDS: VANCOMYCIN HCL 1 GM VIAL ONE ×2 (13:55→17:49)
[2018-10-26 18:50] LABS: APPEARANCE BODY FLUID BLOODY (CLEAR); COLOR,BODY FLUID RED (LT YELLOW); SPECIMENTYPE,BODY FLUID SYNOVIAL; TOTAL VOLUME,BODY FLUID 10 mL
[2018-10-26 18:51] LABS: BODY FLUID WBC 630 /cu. mm.
[2018-10-26 18:54] LABS: BODY FLUID RBC 19350 /cu. mm.
[2018-10-26 18:57] LABS: BF EOSINOPHIL 1 %; BF LYMPHOCYTE 9 %; BF MONOCYTE 1 %
[2018-10-26] MEDS: CELECOXIB 200 MG CAP PO SCH (21:33)
[2018-10-26] MEDS: PREGABALIN 25 MG CAP PO SCH (21:33)
[2018-10-26] MEDS: ACETAMINOPHEN EXTRA STRENGTH 500 MG TABLET PO SCH (21:33)
[2018-10-26] MEDS: SODIUM CHLORIDE 0.9% 1000ML 1,000 ML IV SCH (21:34)
[2018-10-27] VITALS (7 sets, daily range): BP systolic 105–133; BP diastolic 66–81
[2018-10-27] MEDS: ACETAMINOPHEN EXTRA STRENGTH 500 MG TABLET PO SCH ×3 (02:15→17:08)
[2018-10-27] MEDS: SODIUM CHLORIDE 0.9% 1000ML 1,000 ML IV SCH ×2 (04:14→16:57)
[2018-10-27 04:28] LABS: MEAN CORPUSCULAR HEMOGLOBIN 28.7 pg (27.0-33.0); MEAN CORPUSCULAR HGB CONC 33.5 g/dL (32.0-36.0); MEAN CORPUSCULAR VOLUME 85.6 fL (79-99); PLATELET COUNT (AUTO) 197 K/uL (130-400); RED BLOOD CELL COUNT(AUTO) 3.39 MIL/uL (4.50-6.20); RED CELL DISTRIBUTION WIDTH 17.9 % (11.0-15.5); WHITE BLOOD COUNT (AUTO) 9.1 K/uL (4.8-10.8)
[2018-10-27 04:59] LABS: CREATININE 2.4 mg/dL (0.5-1.5); POTASSIUM 4.7 mmol/L (3.5-5.1)
[2018-10-27] MEDS: PREGABALIN 25 MG CAP PO SCH ×2 (08:14→19:25)
[2018-10-27] MEDS: APIXABAN 2.5 MG TABLET PO SCH ×2 (08:14→19:25)
[2018-10-27] MEDS: TAMSULOSIN HCL 0.4 MG CAP.ER.24H PO SCH (08:14)
[2018-10-27] MEDS: FAMOTIDINE 20MG TAB 20 MG TAB PO SCH (08:14)
[2018-10-27] MEDS: CELECOXIB 200 MG CAP PO SCH ×2 (08:14→19:25)
[2018-10-27] MEDS: CALCIUM CARBONATE 500 MG TABLET PO PRN ×2 (08:14→19:25)
[2018-10-27] MEDS: POLYETHYLENE GLYCOL 3350 17 GM POWD.PACK PO SCH (08:14)
[2018-10-27] MEDS: OXYCODONE HCL 5 MG TAB PO PRN ×2 (08:16→19:31)
[2018-10-27] MEDS: PHARMACY COMMUNICATION MISC SCH ×2 (08:45→16:45)
[2018-10-27] MEDS: HYDROMORPHONE PCA 10 MG/50 ML 50 ML IV PRN ×2 (11:35→22:53)
[~2018-10-28] VITALS: Ht 172.7 cm; Wt 99.2 kg
[2018-10-28] MEDS: PHARMACY COMMUNICATION MISC SCH (00:09)
[2018-10-28] MEDS: ACETAMINOPHEN EXTRA STRENGTH 500 MG TABLET PO SCH ×3 (01:16→18:15)
[2018-10-28 03:50] VITALS: BP 120/76
[2018-10-28 05:41] LABS: HEMATOCRIT 25.9 % (42-54); MEAN CORPUSCULAR HEMOGLOBIN 27.4 pg (27.0-33.0); MEAN CORPUSCULAR HGB CONC 32.1 g/dL (32.0-36.0); MEAN CORPUSCULAR VOLUME 85.5 fL (79-99); PLATELET COUNT (AUTO) 192 K/uL (130-400); RED BLOOD CELL COUNT(AUTO) 3.03 MIL/uL (4.50-6.20); RED CELL DISTRIBUTION WIDTH 18.2 % (11.0-15.5); WHITE BLOOD COUNT (AUTO) 5.7 K/uL (4.8-10.8)
[2018-10-28 06:00] LABS: CREATININE 2.2 mg/dL (0.5-1.5); POTASSIUM 3.9 mmol/L (3.5-5.1)
[2018-10-28] MEDS: APIXABAN 2.5 MG TABLET PO SCH (08:09)
[2018-10-28] MEDS: CELECOXIB 200 MG CAP PO SCH (08:09)
[2018-10-28] MEDS: FAMOTIDINE 20MG TAB 20 MG TAB PO SCH (08:09)
[2018-10-28] MEDS: PREGABALIN 25 MG CAP PO SCH (08:09)
[2018-10-28] MEDS: POLYETHYLENE GLYCOL 3350 17 GM POWD.PACK PO SCH (08:09)
[2018-10-28 08:22] VITALS: BP 143/78
[2018-10-28] MEDS: TAMSULOSIN HCL 0.4 MG CAP.ER.24H PO SCH (09:00)
[2018-10-28 11:04] LABS: APPEARANCE,URINE Clear (CLEAR); BILIRUBIN,URINE Negative (NEGATIVE); COLOR,URINE Yellow (YELLOW); GLUCOSE, URINE (UA) Negative (NEGATIVE); KETONES,URINE Negative (NEGATIVE); LEUKOCYTE ESTERASE ,URINE Trace (NEGATIVE); NITRATE,URINE Negative (NEGATIVE); OCCULT BLOOD,URINE Trace (NEGATIVE); PROTEIN,URINE Negative (NEGATIVE); UROBILINOGEN,URINE 0.2 mg/dL (0.2-1.0)
[2018-10-28 11:30] LABS: BACTERIA,URINE Rare /HPF (None Seen); MUCUS,URINE Few LPF (None Seen); RBC,URINE 0-1 /HPF (0-1); SQUAMOUS EPITHELIAL CELL,UR Rare /HPF (0-2)
[2018-10-28 11:51] VITALS: BP 148/91
[2018-10-28 16:34] VITALS: BP 132/73
[~2018-10-28 19:00] MED LIST changes: +ACETAMINOPHEN EXTRA STRENGTH 500 MG TABLET ONE; +ALLO100T PO; +AMLO5TAB9 PO; +APIX2.5T PO; -ASPI-1012 PO; +BISACODYL 10 MG SUPP.RECT RC PRN; +CEFAZOLIN SODIUM 1 GM VIAL IVP SCH; +CEFAZOLIN SODIUM 1 GM VIAL ONE; +CELECOXIB 200 MG CAP ONE; +CIPR-245 PO; +CIPROFLOXACIN HCL 500 MG TABLET PO SCH; +DEXAMETHASONE SOD PHOSPHATE 10MG/ML 1ML VIAL ONE; +DiphenhydrAMINE HCL 50 MG/ML VIAL IVP PRN; +EPHEDRINE SULFATE 50 MG/ML AMPULE ONE; +FENTANYL CITRATE PF 50 MCG/1 ML 2ML VIAL ONE; +FERR324T10 PO; +FERROUS FUMARATE 324 MG TABLET PO PRN; +GLYCOPYRROLATE 1 MG/5 ML SYRINGE ONE; +KETOROLAC TROMETHAMINE 15MG/ML ONE; +LACTATED RINGERS 1000ML 0 ML IV ONE; +LEVOFLOXACIN 500 MG/D5W 100 ML 100 ML IV SCH; +LIDOCAINE HCL-MPF 1% 2ML VIAL IVP PRN; +LIDOCAINE PF 2% 5ML ABBOJECT ONE; +METOCLOPRAMIDE 10 MG/2 ML VIAL ONE; +MIDAZOLAM HCL 1 MG/ML 2ML VIAL ONE; +NEOSTIGMINE 5MG/5ML SYR IV ONE; +ONDANSETRON HCL 4 MG/2 ML VIAL IVP PRN; +ONDANSETRON HCL 4 MG/2 ML VIAL ONE; +OXYCODONE HCL 10 MG TAB.SR.12H PO ONE; +OXYCODONE HCL 5 MG TAB PO PRN; +POTASSIUM CHLORIDE 10% ELIXIR 20 MEQ/15 ML UDCUP PO PRN; +POTASSIUM CHLORIDE 20 MEQ ERTAB PO PRN; +POTASSIUM CHLORIDE 20MEQ/100ML 100 ML IV PRN; +PROPOFOL 10 MG/ML 20ML VIAL IV ONE; +ROCURONIUM 10MG/1ML SYR 10 MG/ML ML ONE; +ROPIVACAINE 0.5% 5MG/ML 30ML IJ ONE; +SODIUM CHLORIDE 0.9% 1000ML 1,000 ML IV ONE; +SUCCINYLCHOLINE 200MG/10ML SYR ONE; +TEMAZEPAM 15 MG CAPSULE PO PRN; +TRAMADOL HCL 50 MG TABLET PO PRN; +TRANEXAMIC ACID 1000MG/10ML IV ONE; +VANC1PLA10 IV; +VANCOMYCIN 1GM+NS 250ML 250 ML IV ONE; +VANCOMYCIN 1GM+NS 250ML 250 ML IV SCH; +VANCOMYCIN 2 GM in SODIUM CHLORIDE 0.9% 500ML 500 ML IV ONE; +VANCOMYCIN HCL 1 GM VIAL ONE; +VANCOMYCIN PROTOCOL PER PHARMACY IV SCH
== END | disposition home health service (06) | DRG 467 ==
LOC: EDSTATUS 10-10 14:15 → DAHIP 10-26 09:07 → 4AH 10-26 18:34
PROVIDERS: ADMIT Orthopaedic Surgery; ATTEND Orthopaedic Surgery
PROC: 0SPC0JZ Removal of Synthetic Substitute from Right Knee Joint, Open Approach (ICD-10-PCS; 2018-10-26)
PROC: 3E0T3BZ Introduction of Anesthetic Agent into Peripheral Nerves and Plexi, Percutaneous Approach (ICD-10-PCS; 2018-10-26)
PROC: 0SHC08Z Insertion of Spacer into Right Knee Joint, Open Approach (ICD-10-PCS; 2018-10-26)
PROC: 0SPC08Z Removal of Spacer from Right Knee Joint, Open Approach (ICD-10-PCS; principal; 2018-10-26 13:51)
PROC: 0SRC0J9 Replacement of Right Knee Joint with Synthetic Substitute, Cemented, Open Approach (ICD-10-PCS; 2018-10-26 13:51)
DX: T84.53XA Infection and inflammatory reaction due to internal right knee prosthesis, initial encounter (principal); C90.00 Multiple myeloma not having achieved remission; I10 Essential (primary) hypertension; E78.5 Hyperlipidemia, unspecified; M10.9 Gout, unspecified; M19.90 Unspecified osteoarthritis, unspecified site; N19 Unspecified kidney failure; Z96.653 Presence of artificial knee joint, bilateral; Y83.1 Surgical operation with implant of artificial internal device as the cause of abnormal reaction of the patient, or of later complication, without mention of misadventure at the time of the procedure; Y92.89 Other specified places as the place of occurrence of the external cause; Z82.49 Family history of ischemic heart disease and other diseases of the circulatory system; Z80.7 Family history of other malignant neoplasms of lymphoid, hematopoietic and related tissues
CPT/HCPCS: 36415; 73562; 80048; 81001; 85025; 85027; 85610; 85730; 87071; 87076; 87088; 87205; 87641; 88300; 88305; 88311; 89051; 97039; C1776; G0378; J0330; J0690; J1100; J1170; J1885; J1956; J2001; J2250; J2405; J2704; J2710; J2765; J2795; J3010; J3370; J3490; J7030; J7040; J7120

== ENCOUNTER → 2020-07-14 | Outpatient (CLI) | payer OTHER ==
[~2020-07-14] MED LIST changes: -ACETAMINOPHEN EXTRA STRENGTH 500 MG TABLET ONE; +AMLO-257 PO; -AMLO5TAB9 PO; -BISACODYL 10 MG SUPP.RECT RC PRN; -CEFAZOLIN SODIUM 1 GM VIAL IVP SCH; -CEFAZOLIN SODIUM 1 GM VIAL ONE; -CELECOXIB 200 MG CAP ONE; -CIPR-245 PO; +CIPR500T10 PO; -CIPROFLOXACIN HCL 500 MG TABLET PO SCH; -DEXAMETHASONE SOD PHOSPHATE 10MG/ML 1ML VIAL ONE; -DiphenhydrAMINE HCL 50 MG/ML VIAL IVP PRN; -EPHEDRINE SULFATE 50 MG/ML AMPULE ONE; -FENTANYL CITRATE PF 50 MCG/1 ML 2ML VIAL ONE; -FERROUS FUMARATE 324 MG TABLET PO PRN; -GLYCOPYRROLATE 1 MG/5 ML SYRINGE ONE; -KETOROLAC TROMETHAMINE 15MG/ML ONE; -LACTATED RINGERS 1000ML 0 ML IV ONE; -LEVOFLOXACIN 500 MG/D5W 100 ML 100 ML IV SCH; -LIDOCAINE HCL-MPF 1% 2ML VIAL IVP PRN; -LIDOCAINE PF 2% 5ML ABBOJECT ONE; -METOCLOPRAMIDE 10 MG/2 ML VIAL ONE; -MIDAZOLAM HCL 1 MG/ML 2ML VIAL ONE; -NEOSTIGMINE 5MG/5ML SYR IV ONE; -ONDANSETRON HCL 4 MG/2 ML VIAL IVP PRN; -ONDANSETRON HCL 4 MG/2 ML VIAL ONE; -OXYCODONE HCL 10 MG TAB.SR.12H PO ONE; -OXYCODONE HCL 5 MG TAB PO PRN; -POTASSIUM CHLORIDE 10% ELIXIR 20 MEQ/15 ML UDCUP PO PRN; -POTASSIUM CHLORIDE 20 MEQ ERTAB PO PRN; -POTASSIUM CHLORIDE 20MEQ/100ML 100 ML IV PRN; -PROPOFOL 10 MG/ML 20ML VIAL IV ONE; -ROCURONIUM 10MG/1ML SYR 10 MG/ML ML ONE; -ROPIVACAINE 0.5% 5MG/ML 30ML IJ ONE; -SODIUM CHLORIDE 0.9% 1000ML 1,000 ML IV ONE; -SUCCINYLCHOLINE 200MG/10ML SYR ONE; -TEMAZEPAM 15 MG CAPSULE PO PRN; -TRAMADOL HCL 50 MG TABLET PO PRN; -TRANEXAMIC ACID 1000MG/10ML IV ONE; -VANC1PLA10 IV; -VANCOMYCIN 1GM+NS 250ML 250 ML IV ONE; -VANCOMYCIN 1GM+NS 250ML 250 ML IV SCH; -VANCOMYCIN 2 GM in SODIUM CHLORIDE 0.9% 500ML 500 ML IV ONE; -VANCOMYCIN HCL 1 GM VIAL ONE; -VANCOMYCIN PROTOCOL PER PHARMACY IV SCH
== END | disposition home or self-care (01) ==
LOC: RAH 11:11
PROVIDERS: ATTEND Internal Medicine
DX: R09.89 Other specified symptoms and signs involving the circulatory and respiratory systems (principal)
CPT/HCPCS: 93880

== ENCOUNTER → 2020-10-19 | Outpatient (CLI) | payer OTHER, MEDICARE ==
[~2020-10-19] VITALS: Ht 175.3 cm; Wt 110.2 kg
[~2020-10-19] MED LIST changes: +REGADENOSON 0.4 MG/5 ML PF SYG IVP SCH
== END | disposition home or self-care (01) ==
LOC: SHCH 08:44
PROVIDERS: ATTEND Internal Medicine Cardiovascular Disease
DX: R06.02 Shortness of breath (principal)
CPT/HCPCS: 78452; 93017; 96374; A9500 ×2; J2785

== ENCOUNTER 2020-11-15 08:42 | Day surgery (SDC) | payer OTHER, MEDICARE ==
[2020-11-09 11:20] LABS: BASOPHILS % (AUTO) 1.1 % (0.0-5.0); EOSINOPHILS % (AUTO) 1.1 % (0.0-8.0); HEMATOCRIT 48.5 % (42-54); LYMPHOCYTES % (AUTO) 25.5 % (21.0-51.0); MEAN CORPUSCULAR HEMOGLOBIN 29.9 pg (27.0-33.0); MEAN CORPUSCULAR HGB CONC 33.4 g/dL (32.0-36.0); MEAN CORPUSCULAR VOLUME 89.6 fL (79-99); MONOCYTES % (AUTO) 9.3 % (3.0-13.0); NEUTROPHILS % (AUTO) 62.3 % (40.0-77.0); PLATELET COUNT (AUTO) 197 K/uL (130-400); RED BLOOD CELL COUNT(AUTO) 5.41 MIL/uL (4.50-6.20); RED CELL DISTRIBUTION WIDTH 13.6 % (11.0-15.5)
[2020-11-09 11:24] LABS: CREATININE 1.9 mg/dL (0.5-1.5); POTASSIUM 4.3 mmol/L (3.5-5.1)
[2020-11-09 11:41] LABS: APPEARANCE,URINE CLEAR (CLEAR); BILIRUBIN,URINE NEGATIVE (NEGATIVE); COLOR,URINE YELLOW (YELLOW); GLUCOSE, URINE (UA) NEGATIVE (NEGATIVE); KETONES,URINE NEGATIVE (NEGATIVE); LEUKOCYTE ESTERASE ,URINE NEGATIVE (NEGATIVE); NITRATE,URINE NEGATIVE (NEGATIVE); OCCULT BLOOD,URINE TRACE-INTACT (NEGATIVE); PROTEIN,URINE NEGATIVE (NEGATIVE); UROBILINOGEN,URINE 0.2 mg/dL (0.2-1.0)
[2020-11-09 11:48] LABS: RBC,URINE 0-1 /HPF (0-1)
[2020-11-09 11:49] LABS: BACTERIA,URINE Rare /HPF (None Seen); INR 0.96 (0.85-1.15); PROTHROMBIN TIME 10.5 SEC (9.6-11.6); SQUAMOUS EPITHELIAL CELL,UR Rare /HPF (0-2)
[2020-11-09 11:50] LABS: PARTIAL THROMBOPLASTIN TIME 26.1 SEC (26.3-35.5)
[2020-11-11 11:36] VITALS: BP 174/95
[2020-11-15] VITALS (13 sets, daily range): BP systolic 128–203; BP diastolic 56–104
[~2020-11-15] VITALS: Ht 175.3 cm; Wt 111.9 kg
[~2020-11-15 08:42] MED LIST changes: +0.9%NACL 1000ML 1,000 ML IV SCH; +AEC81 PO; -ALLO100T PO; -APIX2.5T PO; +ATOR10 PO; -ATOR10TA69 PO; -CIPR500T10 PO; +FERR256T PO; -FERR324T10 PO; -HYDR-4457 PO; +LOSA100T58 PO; +NAPR-1023 PO; -REGADENOSON 0.4 MG/5 ML PF SYG IVP SCH; -VALS80TA30 PO
[2020-11-15] MEDS ORDERED: IOHEXOL 350 MG/ML 100ML INFUS..BTL IV ONE (12:16)
[2020-11-15] MEDS ORDERED: NITROGLYCERIN 2 MG VIAL IV ONE (12:16)
[2020-11-15] MEDS ORDERED: HEPARIN 10,000 UNIT/10ML (1,000 UNIT/ML) VIAL ONE (12:16)
[2020-11-15] MEDS ORDERED: MIDAZOLAM HCL 1 MG/ML 2ML VIAL ONE (12:17)
[2020-11-15] MEDS ORDERED: FENTANYL CITRATE PF 50 MCG/1 ML 2ML VIAL ONE (12:17)
[2020-11-15] MEDS ORDERED: LIDOCAINE HCL 400MG/20ML VIAL ONE (12:17)
[2020-11-15] MEDS ORDERED: DEXTROSE 50%-WATER 50 ML DISP.SYRIN IV PRN (13:30)
[2020-11-15] MEDS ORDERED: NITROGLYCERIN 0.4 MG SL TAB SL PRN (13:30)
[2020-11-15] MEDS ORDERED: GLUCAGON 1MG KIT 1 MG ML IM PRN (13:30)
[2020-11-15] MEDS ORDERED: 0.9%NACL 1000ML 1,000 ML IV SCH (13:30)
[2020-11-15] MEDS ORDERED: METOPROLOL TARTRATE 1 MG/ML 5ML VIAL IV PRN (13:30)
== END 2020-11-15 18:05 | disposition home or self-care (01) ==
LOC: DAH 08:42
PROVIDERS: ATTEND Internal Medicine Cardiovascular Disease
DX: I25.119 Atherosclerotic heart disease of native coronary artery with unspecified angina pectoris (principal); I77.1 Stricture of artery; I11.0 Hypertensive heart disease with heart failure; I50.32 Chronic diastolic (congestive) heart failure; E78.5 Hyperlipidemia, unspecified; E66.9 Obesity, unspecified; M19.90 Unspecified osteoarthritis, unspecified site; M10.9 Gout, unspecified; Z79.82 Long term (current) use of aspirin; Z79.899 Other long term (current) drug therapy; Z79.01 Long term (current) use of anticoagulants; Z82.49 Family history of ischemic heart disease and other diseases of the circulatory system; Z80.9 Family history of malignant neoplasm, unspecified; Z85.79 Personal history of other malignant neoplasms of lymphoid, hematopoietic and related tissues; Z68.36 Body mass index [BMI] 36.0-36.9, adult
CPT/HCPCS: 36215; 36415; 75716; 80048; 81001; 85025; 85610; 85730; 93458; A4215; A4216; A4221; A4222; A4223 ×3; A4606; A4663; C1760; C1894 ×2; J1644; J2250; J3010; J3490 ×2; Q9965 ×2; Q9967; 99156; 99157

== ENCOUNTER → 2020-11-20 | Outpatient (CLI) | payer OTHER, MEDICARE ==
[~2020-11-20] MED LIST changes: -0.9%NACL 1000ML 1,000 ML IV SCH
== END | disposition home or self-care (01) ==
LOC: SHCH 10:30
PROVIDERS: ATTEND Internal Medicine Cardiovascular Disease
DX: I87.2 Venous insufficiency (chronic) (peripheral) (principal); I73.9 Peripheral vascular disease, unspecified; R06.02 Shortness of breath
CPT/HCPCS: 93925; 93970

== ENCOUNTER → 2020-11-28 | Outpatient (CLI) | payer OTHER, MEDICARE | END | disposition home or self-care (01) | LOC: SHCH 15:53 | PROVIDERS: ATTEND Internal Medicine Cardiovascular Disease | DX: R06.02 Shortness of breath (principal) | CPT/HCPCS: 93306; 93356 ==

== ENCOUNTER 2022-07-04 16:27 | Inpatient (IN) | payer OTHER, MEDICARE ==
[~2022-07-04] VITALS: Ht 175.3 cm; Wt 101.1 kg
[2022-07-04 17:06] LABS: BASOPHILS % (AUTO) 1.9 % (0.0-5.0); EOSINOPHILS % (AUTO) 0.9 % (0.0-8.0); HEMATOCRIT 38.4 % (42-54); LYMPHOCYTES % (AUTO) 47.5 % (21.0-51.0); MEAN CORPUSCULAR HEMOGLOBIN 29.2 pg (27.0-33.0); MEAN CORPUSCULAR HGB CONC 33.3 g/dL (32.0-36.0); MEAN CORPUSCULAR VOLUME 87.7 fL (79-99); MONOCYTES % (AUTO) 15.4 % (3.0-13.0); PLATELET COUNT (AUTO) 208 K/uL (130-400); RED BLOOD CELL COUNT(AUTO) 4.38 MIL/uL (4.50-6.20); RED CELL DISTRIBUTION WIDTH 15.9 % (11.0-15.5); WHITE BLOOD COUNT (AUTO) 6.4 K/uL (4.8-10.8)
[2022-07-04 17:17] LABS: CREATININE 2.1 mg/dL (0.5-1.5); POTASSIUM 4.2 mmol/L (3.5-5.1)
[2022-07-04 17:26] LABS: ALBUMIN 2.7 g/dL (3.5-5.0); TOTAL PROTEIN, SERUM 6.1 g/dL (6.0-8.3)
[2022-07-04 17:46] LABS: B-TYPE NATRIURETIC PEPTIDE 168 pg/mL (0-100)
[2022-07-04] MEDS ORDERED: SOLU-MEDROL 125MG VIAL IVP ONE (19:00)
[2022-07-04] MEDS ORDERED: IPRATROPIUM/ALBUTEROL SULFATE 3 ML SOLUTION IH ONE (19:00)
[2022-07-04] MEDS ORDERED: ALBUTEROL 0.042% 1.25MG/3ML IH ONE ×2 (19:22)
[2022-07-04] MEDS ORDERED: IPRATROPIUM 0.5 MG/2.5 ML INH IH ONE (19:22)
[2022-07-04 19:46] LABS: ABG BASE EXCESS -5.7 mmol/L (-2.0-3.0); ABG OXYGEN SATURATION 94.7 % (95.0-99.0); ABG PCO2 27 mmHg (35-48)
[2022-07-04] MEDS ORDERED: ACETAMINOPHEN WITH CODEINE 1 TAB TAB ONE (20:20)
[2022-07-04] MEDS ORDERED: ACETAMINOPHEN WITH CODEINE 1 TAB TAB PO PRN (20:30)
[2022-07-04] MEDS ORDERED: ENOXAPARIN SODIUM 100 MG/1 ML SQ ONE (21:00)
[2022-07-04] MEDS ORDERED: ACETAMINOPHEN 325 MG TAB PO PRN (22:00)
[2022-07-04] MEDS ORDERED: ACETAMINOPHEN 650 MG SUPPOSITORY RC PRN (22:00)
[2022-07-04] MEDS ORDERED: CLONIDINE HCL 0.1 MG TABLET PO PRN (22:00)
[2022-07-04] MEDS ORDERED: ONDANSETRON 4MG INJ IVP PRN (22:00)
[2022-07-04] MEDS ORDERED: HYDRALAZINE 20MG/ML VIAL IV PRN (22:00)
[2022-07-04] MEDS ORDERED: LABETALOL 20MG SYG IV PRN (22:00)
[2022-07-05 02:36] VITALS: BP 147/83
[2022-07-05 07:30] LABS: HEMATOCRIT 37.8 % (42-54); MEAN CORPUSCULAR HEMOGLOBIN 29.7 pg (27.0-33.0); MEAN CORPUSCULAR HGB CONC 34.4 g/dL (32.0-36.0); MEAN CORPUSCULAR VOLUME 86.3 fL (79-99); RED BLOOD CELL COUNT(AUTO) 4.38 MIL/uL (4.50-6.20); RED CELL DISTRIBUTION WIDTH 16.1 % (11.0-15.5); WHITE BLOOD COUNT (AUTO) 3.8 K/uL (4.8-10.8)
[2022-07-05] MEDS: INSULIN HUMULIN R 100 UNIT/ML 3ML SQ SCH ×4 (07:30→21:00)
[2022-07-05 07:52] LABS: CREATININE 1.9 mg/dL (0.5-1.5); PHOSPHORUS 5.5 mg/dL (2.5-4.9); POTASSIUM 4.5 mmol/L (3.5-5.1); THYROID STIMULATING HORMONE 0.73 uIU/mL (0.36-3.74)
[2022-07-05 08:00] VITALS: BP 128/78
[2022-07-05] MEDS: ***HM***(Cholecalciferol (Vitamin D3) (Vitamin D3) 1,000 UNIT) PO SCH (08:49)
[2022-07-05] MEDS: FERROUS GLUCONATE 324 TABLET PO SCH (08:49)
[2022-07-05] MEDS: ATORVASTATIN 10 MG TABLET PO SCH (08:49)
[2022-07-05] MEDS: ASPIRIN 81 MG EC TAB PO SCH (08:50)
[2022-07-05] MEDS: ENOXAPARIN SODIUM 30 MG/0.3 ML SQ SCH (08:50)
[2022-07-05] MEDS ORDERED: ASPIRIN 81MG CHEW TAB PO SCH (09:00)
[2022-07-05 12:00] VITALS: BP 115/65
[2022-07-05 16:00] VITALS: BP 135/77
[2022-07-05] MEDS: FUROSEMIDE 20MG VIAL IV SCH (17:56)
[2022-07-05 20:00] VITALS: BP 144/64
[2022-07-05] MEDS ORDERED: SIMVASTATIN 20 MG TABLET PO SCH (21:00)
[2022-07-05] MEDS: Vitamin B Complex/Vit C/Folic Acid PO SCH (21:42)
[2022-07-06] VITALS: BP 128/79
[2022-07-06] MEDS ORDERED: SODIUM CHLORIDE 3% FOR INHALATION 4 ML/AMP VIAL.NEB IH ONE (00:27)
[2022-07-06 04:00] VITALS: BP 128/80
[2022-07-06] MEDS: INSULIN HUMULIN R 100 UNIT/ML 3ML SQ SCH ×4 (06:10→20:56)
[2022-07-06 06:51] LABS: BASOPHILS % (AUTO) 0.6 % (0.0-5.0); HEMATOCRIT 35.9 % (42-54); LYMPHOCYTES % (AUTO) 42.4 % (21.0-51.0); MEAN CORPUSCULAR HEMOGLOBIN 29.6 pg (27.0-33.0); MEAN CORPUSCULAR HGB CONC 33.7 g/dL (32.0-36.0); MEAN CORPUSCULAR VOLUME 87.8 fL (79-99); MONOCYTES % (AUTO) 16.1 % (3.0-13.0); PLATELET COUNT (AUTO) 277 K/uL (130-400); RED BLOOD CELL COUNT(AUTO) 4.09 MIL/uL (4.50-6.20)
[2022-07-06 07:08] LABS: CREATININE 1.9 mg/dL (0.5-1.5); MAGNESIUM 2.1 mg/dL (1.80-2.40); POTASSIUM 4.2 mmol/L (3.5-5.1)
[2022-07-06 07:23] LABS: B-TYPE NATRIURETIC PEPTIDE 157 pg/mL (0-100)
[2022-07-06 08:00] VITALS: BP 120/75
[2022-07-06] MEDS: ATORVASTATIN 10 MG TABLET PO SCH (08:38)
[2022-07-06] MEDS: ASPIRIN 81 MG EC TAB PO SCH (08:38)
[2022-07-06] MEDS: FERROUS GLUCONATE 324 TABLET PO SCH (08:39)
[2022-07-06] MEDS: ENOXAPARIN SODIUM 30 MG/0.3 ML SQ SCH (08:40)
[2022-07-06] MEDS: FUROSEMIDE 20MG VIAL IV SCH (08:41)
[2022-07-06] MEDS: ***HM***(Cholecalciferol (Vitamin D3) (Vitamin D3) 1,000 UNIT) PO SCH (08:47)
[2022-07-06 12:00] VITALS: BP 105/65
[2022-07-06] MEDS: ZOSYN 3.375GM +NS 50ML IVPB SCH ×2 (12:38→20:37)
[2022-07-06] MEDS: AZITHROMYCIN 500MG+NS 250ML IVPB SCH (12:38)
[2022-07-06] MEDS: GUAIFENESIN-CODEINE 5 ML SYRUP PO PRN ×2 (12:41→20:44)
[2022-07-06] MEDS ORDERED: 0.9%NACL 50ML IV SCH (13:00)
[2022-07-06] MEDS: SOLU-MEDROL 40MG VIAL IVP SCH ×2 (13:23→18:14)
[2022-07-06 16:00] VITALS: BP 132/79
[2022-07-06 17:43] LABS: APPEARANCE,URINE CLEAR (CLEAR); BILIRUBIN,URINE NEGATIVE (NEGATIVE); COLOR,URINE LIGHT-YELLOW (YELLOW); GLUCOSE, URINE (UA) NEGATIVE (NEGATIVE); KETONES,URINE NEGATIVE (NEGATIVE); LEUKOCYTE ESTERASE ,URINE NEGATIVE Leu/uL (NEGATIVE); NITRATE,URINE NEGATIVE (NEGATIVE); OCCULT BLOOD,URINE NEGATIVE (NEGATIVE); PH,URINE 5.5 (5.0-8.0); PROTEIN,URINE NEGATIVE (NEGATIVE); UROBILINOGEN,URINE 0.2 mg/dL (0.2-1.0)
[2022-07-06 18:41] LABS: RBC,URINE 0-1 /HPF (0-1); WBC,URINE 0-1 /HPF (0-1)
[2022-07-06] MEDS: IPRATROPIUM 0.5 MG/2.5 ML INH IH SCH ×2 (19:11→23:51)
[2022-07-06 20:00] VITALS: BP 118/81
[2022-07-06] MEDS: Vitamin B Complex/Vit C/Folic Acid PO SCH (20:38)
[2022-07-06] MEDS ORDERED: LACTULOSE 20 GM/30 ML UDCUP ONE (20:44)
[2022-07-07] VITALS (7 sets, daily range): BP systolic 118–136; BP diastolic 71–91
[2022-07-07] MEDS: ZOSYN 3.375GM +NS 50ML IVPB SCH ×3 (04:34→20:13)
[2022-07-07] MEDS: INSULIN HUMULIN R 100 UNIT/ML 3ML SQ SCH ×4 (05:42→21:19)
[2022-07-07] MEDS: SOLU-MEDROL 40MG VIAL IVP SCH ×2 (05:58→17:04)
[2022-07-07 06:29] LABS: BASOPHILS % (AUTO) 0.5 % (0.0-5.0); HEMATOCRIT 39.5 % (42-54); MEAN CORPUSCULAR HEMOGLOBIN 29.2 pg (27.0-33.0); MEAN CORPUSCULAR HGB CONC 32.7 g/dL (32.0-36.0); MEAN CORPUSCULAR VOLUME 89.4 fL (79-99); MONOCYTES % (AUTO) 7.6 % (3.0-13.0); NEUTROPHILS % (AUTO) 52.9 % (40.0-77.0); PLATELET COUNT (AUTO) 322 K/uL (130-400); RED BLOOD CELL COUNT(AUTO) 4.42 MIL/uL (4.50-6.20); WHITE BLOOD COUNT (AUTO) 6.4 K/uL (4.8-10.8)
[2022-07-07 06:38] LABS: CREATININE 1.9 mg/dL (0.5-1.5); MAGNESIUM 2.3 mg/dL (1.80-2.40); POTASSIUM 4.4 mmol/L (3.5-5.1)
[2022-07-07] MEDS: IPRATROPIUM 0.5 MG/2.5 ML INH IH SCH ×4 (06:38→23:29)
[2022-07-07] MEDS: ***HM***(Cholecalciferol (Vitamin D3) (Vitamin D3) 1,000 UNIT) PO SCH (08:56)
[2022-07-07] MEDS: FERROUS GLUCONATE 324 TABLET PO SCH (08:59)
[2022-07-07] MEDS: ATORVASTATIN 10 MG TABLET PO SCH (08:59)
[2022-07-07] MEDS: ASPIRIN 81 MG EC TAB PO SCH (08:59)
[2022-07-07] MEDS: ENOXAPARIN SODIUM 30 MG/0.3 ML SQ SCH (09:00)
[2022-07-07] MEDS: AZITHROMYCIN 500MG+NS 250ML IVPB SCH (13:25)
[2022-07-07] MEDS: Vitamin B Complex/Vit C/Folic Acid PO SCH (20:13)
[2022-07-08] VITALS: BP 126/78
[2022-07-08] MEDS: GUAIFENESIN-CODEINE 5 ML SYRUP PO PRN (01:40)
[2022-07-08] MEDS: ZOSYN 3.375GM +NS 50ML IVPB SCH ×2 (03:59→12:30)
[2022-07-08 04:00] VITALS: BP 135/80
[2022-07-08 05:13] LABS: BASOPHILS % (AUTO) 0.9 % (0.0-5.0); HEMATOCRIT 36.5 % (42-54); LYMPHOCYTES % (AUTO) 29.8 % (21.0-51.0); MEAN CORPUSCULAR HEMOGLOBIN 29.6 pg (27.0-33.0); MEAN CORPUSCULAR HGB CONC 33.2 g/dL (32.0-36.0); MEAN CORPUSCULAR VOLUME 89.2 fL (79-99); MONOCYTES % (AUTO) 9.5 % (3.0-13.0); NEUTROPHILS % (AUTO) 51.1 % (40.0-77.0); PLATELET COUNT (AUTO) 348 K/uL (130-400); RED BLOOD CELL COUNT(AUTO) 4.09 MIL/uL (4.50-6.20); RED CELL DISTRIBUTION WIDTH 16.2 % (11.0-15.5); WHITE BLOOD COUNT (AUTO) 8.6 K/uL (4.8-10.8)
[2022-07-08 05:22] LABS: CREATININE 1.8 mg/dL (0.5-1.5); MAGNESIUM 2.2 mg/dL (1.80-2.40); POTASSIUM 4.5 mmol/L (3.5-5.1)
[2022-07-08] MEDS: INSULIN HUMULIN R 100 UNIT/ML 3ML SQ SCH ×2 (05:33→11:30)
[2022-07-08] MEDS: SOLU-MEDROL 40MG VIAL IVP SCH (05:34)
[2022-07-08] MEDS: IPRATROPIUM 0.5 MG/2.5 ML INH IH SCH ×2 (07:22→11:05)
[2022-07-08 08:00] VITALS: BP 137/88
[2022-07-08] MEDS: ***HM***(Cholecalciferol (Vitamin D3) (Vitamin D3) 1,000 UNIT) PO SCH (09:00)
[2022-07-08] MEDS: ASPIRIN 81 MG EC TAB PO SCH (11:57)
[2022-07-08] MEDS: FERROUS GLUCONATE 324 TABLET PO SCH (11:57)
[2022-07-08] MEDS: ATORVASTATIN 10 MG TABLET PO SCH (11:57)
[2022-07-08] MEDS: ENOXAPARIN SODIUM 30 MG/0.3 ML SQ SCH (11:59)
[2022-07-08 12:00] VITALS: BP 132/73
[2022-07-08] MEDS: AZITHROMYCIN 500MG+NS 250ML IVPB SCH (12:30)
[2022-07-08] MEDS ORDERED: IPRA3AMP24 IH (12:44)
[2022-07-08] MEDS ORDERED: PRED20TA3 PO (12:44)
[2022-07-08] MEDS ORDERED: LEVO750T39 PO (12:44)
[2022-07-08] MEDS ORDERED: BENZ-39 PO (12:49)
[2022-07-08] MEDS ORDERED: LEVOFLOXACIN 750 MG TABLET PO SCH (14:00)
[2022-07-08] MEDS ORDERED: SOLU-MEDROL 40MG VIAL IVP SCH (18:00)
== END 2022-07-08 15:45 | disposition home or self-care (01) | DRG 177 ==
LOC: EDH 16:27 → EDHIP 21:32 → OBSVTOIN 21:32 → 3DH 07-05 02:22
PROVIDERS: ADMIT Internal Medicine; ATTEND Internal Medicine
DX: J15.6 Pneumonia due to other Gram-negative bacteria (principal); G93.41 Metabolic encephalopathy; J96.01 Acute respiratory failure with hypoxia; I13.0 Hypertensive heart and chronic kidney disease with heart failure and stage 1 through stage 4 chronic kidney disease, or unspecified chronic kidney disease; C90.00 Multiple myeloma not having achieved remission; D84.9 Immunodeficiency, unspecified; Z20.822 Contact with and (suspected) exposure to COVID-19; I50.9 Heart failure, unspecified; E78.00 Pure hypercholesterolemia, unspecified; G47.33 Obstructive sleep apnea (adult) (pediatric); N18.9 Chronic kidney disease, unspecified
CPT/HCPCS: 36415; 36600; 71045; 71250; 80048; 80053; 81001; 82550; 82803; 82948; 83605; 83735; 83874; 83880; 84100; 84443; 84484; 85025; 85027; 85378; 87040; 87071; 87077; 87088; 87186; 87205; 87635; 87804; 93005; 93306; 93356; 93970; 94640; 94664; 94760; C9803; G0378; J0456; J1650; J1815; J1940; J2543; J2920; J2930

== ENCOUNTER 2024-01-23 05:48 | Day surgery (SDC) | payer OTHER ==
[2024-01-21 09:14] LABS: BASOPHILS # (AUTO) 0.08 K/uL (0.00-0.20); BASOPHILS % (AUTO) 1.1 % (0.0-5.0); EOSINOPHILS # (AUTO) 0.12 K/uL (0.00-0.70); EOSINOPHILS % (AUTO) 1.6 % (0.0-8.0); HEMATOCRIT 41.8 % (42-54); IMMATURE GRANULOCYTE ABSOLUTE 0.03 K/uL (0-1); LYMPHOCYTES # (AUTO) 3.2 K/uL (1.0-4.8); LYMPHOCYTES % (AUTO) 42.2 % (21.0-51.0); MEAN CORPUSCULAR HEMOGLOBIN 31.2 pg (27.0-33.0); MEAN CORPUSCULAR HGB CONC 34.2 g/dL (32.0-36.0); MEAN CORPUSCULAR VOLUME 91.3 fL (79-99); MONOCYTES # (AUTO) 0.5 K/uL (0.1-1.0); MONOCYTES % (AUTO) 6.9 % (3.0-13.0); NEUTROPHILS # (AUTO) 3.6 K/uL (1.8-7.7); NEUTROPHILS % (AUTO) 47.8 % (40.0-77.0); PLATELET COUNT (AUTO) 156 K/uL (130-400); RED BLOOD CELL COUNT(AUTO) 4.58 MIL/uL (4.50-6.20); WHITE BLOOD COUNT (AUTO) 7.6 K/uL (4.8-10.8)
[2024-01-21 09:23] VITALS: BP 146/92; PULSE 74; RESP 17; TEMP 98.4
[2024-01-21 09:23] LABS: CREATININE 2.6 mg/dL (0.5-1.3); POTASSIUM 4.6 mmol/L (3.5-5.1)
[2024-01-21 09:24] LABS: INR 0.99 (0.85-1.15); PROTHROMBIN TIME 10.7 SEC (9.6-11.6)
[2024-01-21 09:25] LABS: PARTIAL THROMBOPLASTIN TIME 26.8 SEC (26.3-35.5)
[~2024-01-23] VITALS: Ht 175.3 cm; Wt 96.6 kg
[2024-01-23] VITALS (15 sets, daily range): BP systolic 116–138; BP diastolic 61–86; PULSE 58–69; RESP 13–17; TEMP 97.5–98
[~2024-01-23 05:48] MED LIST changes: -AEC81 PO; +ALLO300T2 PO; -AMLO-257 PO; -ATOR10 PO; +ATOR40TA69 PO; -CHOL100040 PO; +CHOL200074 PO; -FERR256T PO; -LOSA100T58 PO; +LOSA100T59 PO; +METO-391 PO; -NAPR-1023 PO
[2024-01-23] MEDS: ceFAZolin SODIUM 2 GM VIAL ONE (06:41)
[2024-01-23] MEDS: LACTATED RINGERS 1000ML 1,000 ML IV ONE (06:41)
[2024-01-23] MEDS ORDERED: FAMOTIDINE 20MG VIAL IV ONE (06:44)
[2024-01-23] MEDS ORDERED: acetaMINOPHEN 1,000 MG/100 ML VIAL IV ONE (06:44)
[2024-01-23] MEDS ORDERED: ketaMINE 50MG/ML SYRINGE 50 MG/ML DISP.SYRIN ONE (06:45)
[2024-01-23] MEDS ORDERED: LIDOCAINE PF 100MG/5ML (2%) SYRINGE 5ML ONE ×2 (06:51→06:54)
[2024-01-23] MEDS ORDERED: proPOFol 10 MG/ML 20ML VIAL IV ONE (06:51)
[2024-01-23] MEDS ORDERED: FENTanyl CITRate PF 50 MCG/1 ML 2ML VIAL ONE (06:52)
[2024-01-23] MEDS ORDERED: rocuRONium bROMide 10MG/1ML 5ML VL ONE ×2 (06:52→07:51)
[2024-01-23] MEDS ORDERED: dexaMETHasone SOD PHOSPHATE 10MG/ML 1ML VIAL ONE (07:18)
[2024-01-23] MEDS ORDERED: ondanSETRON 4MG INJ ONE (07:18)
[2024-01-23] MEDS ORDERED: phenylEPHRINE HCL 10 MG/ML 1ML VIAL IV ONE (07:43)
[2024-01-23] MEDS ORDERED: NEOSTIGMINE METHYLSULFATE 1MG/ML IV ONE (07:48)
[2024-01-23] MEDS ORDERED: GLYCOPYRROLATE 0.2 MG/ML 5 ML VIAL ONE (07:48)
[2024-01-23] MEDS: BUPIvacaine/PF 0.25% 30ML VIAL IJ ONE (08:12)
[2024-01-23] MEDS ORDERED: ACET-2079 PO (08:34)
== END 2024-01-23 11:56 | disposition home or self-care (01) ==
LOC: DAH 05:48
PROVIDERS: ATTEND Student in an Organized Health Care Education/Training Program
DX: M70.32 Other bursitis of elbow, left elbow (principal); R22.32 Localized swelling, mass and lump, left upper limb; M1A.0221 Idiopathic chronic gout, left elbow, with tophus (tophi); I12.9 Hypertensive chronic kidney disease with stage 1 through stage 4 chronic kidney disease, or unspecified chronic kidney disease; N18.9 Chronic kidney disease, unspecified; E78.5 Hyperlipidemia, unspecified; M19.90 Unspecified osteoarthritis, unspecified site; Z88.5 Allergy status to narcotic agent; Z88.8 Allergy status to other drugs, medicaments and biological substances; I45.10 Unspecified right bundle-branch block; Z96.653 Presence of artificial knee joint, bilateral; Z79.899 Other long term (current) drug therapy
CPT/HCPCS: 80048; 85025; 85610; 85730; 86140; 36415; 24105; 88305; 93005; A4663; A4215 ×2; J7120; J3490 ×5; J3010; J1100; J0665; J2001 ×2; J2704; J2405; J2710; J2371; J0690; A6223; A4649 ×2; A4930; A5120; A4223; A4222; A4221

== ENCOUNTER 2024-04-02 05:45 | Day surgery (SDC) | payer OTHER ==
[2024-03-30 10:28] LABS: BASOPHILS # (AUTO) 0.11 K/uL (0.00-0.20); BASOPHILS % (AUTO) 1.2 % (0.0-5.0); EOSINOPHILS # (AUTO) 0.34 K/uL (0.00-0.70); EOSINOPHILS % (AUTO) 3.7 % (0.0-8.0); HEMATOCRIT 43.9 % (42-54); IMMATURE GRANULOCYTE ABSOLUTE 0.03 K/uL (0-1); LYMPHOCYTES # (AUTO) 3.4 K/uL (1.0-4.8); LYMPHOCYTES % (AUTO) 37.3 % (21.0-51.0); MEAN CORPUSCULAR HEMOGLOBIN 31.6 pg (27.0-33.0); MEAN CORPUSCULAR HGB CONC 33.3 g/dL (32.0-36.0); MONOCYTES # (AUTO) 0.6 K/uL (0.1-1.0); MONOCYTES % (AUTO) 6.6 % (3.0-13.0); NEUTROPHILS # (AUTO) 4.6 K/uL (1.8-7.7); NEUTROPHILS % (AUTO) 50.9 % (40.0-77.0); PLATELET COUNT (AUTO) 177 K/uL (130-400); RED BLOOD CELL COUNT(AUTO) 4.62 MIL/uL (4.50-6.20); RED CELL DISTRIBUTION WIDTH 13.3 % (11.0-15.5); WHITE BLOOD COUNT (AUTO) 9.1 K/uL (4.8-10.8)
[2024-03-30 10:29] VITALS: BP 158/94; PULSE 75; RESP 18; TEMP 98
[2024-03-30 10:33] LABS: CREATININE 2.3 mg/dL (0.5-1.3); POTASSIUM 4.9 mmol/L (3.5-5.1)
[2024-03-30 10:39] LABS: INR 0.97 (0.85-1.15); PROTHROMBIN TIME 10.5 SEC (9.6-11.6)
[2024-03-30 10:40] LABS: PARTIAL THROMBOPLASTIN TIME 25.9 SEC (26.3-35.5)
--- NOTE | 2024-03-30 11:10 | EKG ---
[facility] Test Date: 2024-03-30 Test Time: 10:43:17 Pat Name: DESHAUN DINERO Department: [facility] Room: Gender: M Manager Transfer: [id number] Requested By: HERNAN HORTON Order Number: [id number] Reading MD: Es Nichols Measurements Intervals [place] Rate: 67 P: 53 W[place]: 194 QRS: 80 QRSD: 140 T: 29 QT: 412 QTc: 434 Interpretive Statements Sinus rhythm Right bundle branch block Compared to ECG 01/23/2024 06:42:22 Ventricular premature complex(es) no longer present Electronically Signed On 04-01-2024 17:34:10 GRAVURE PRESS OPERATOR by Es Nichols Please click the below link to view image of tracing.
--- NOTE | 2024-04-01 10:40 | NUR ---
report dr gonzalez reviewed ekg. ok to proceed
[~2024-04-02] VITALS: Ht 175.3 cm; Wt 93.4 kg
[2024-04-02] VITALS (14 sets, daily range): BP systolic 99–132; BP diastolic 52–84; PULSE 60–83; RESP 15–18; TEMP 97.3–98.1
[2024-04-02] MEDS: LACTATED RINGERS 1000ML 1,000 ML IV ONE (06:29)
[2024-04-02] MEDS: ceFAZolin SODIUM 2 GM VIAL ONE (06:29)
[2024-04-02] MEDS ORDERED: ondanSETRON 4MG INJ ONE ×2 (06:40→07:24)
[2024-04-02] MEDS ORDERED: FENTanyl CITRate PF 50 MCG/1 ML 2ML VIAL ONE ×2 (06:40→08:17)
[2024-04-02] MEDS ORDERED: proPOFol 10 MG/ML 20ML VIAL IV ONE (06:40)
[2024-04-02] MEDS ORDERED: MIDAZOLAM HCL 1 MG/ML 2ML VIAL ONE (06:41)
[2024-04-02] MEDS ORDERED: rocuRONium bROMide 10MG/1ML 5ML VL ONE (06:41)
[2024-04-02] MEDS ORDERED: LIDOCAINE PF 100MG/5ML (2%) SYRINGE 5ML ONE (06:41)
[2024-04-02] MEDS ORDERED: phenylEPHRINE HCL 10 MG/ML 1ML VIAL IV ONE (06:49)
[2024-04-02] MEDS ORDERED: ACET-2079 PO (07:22)
[2024-04-02] MEDS ORDERED: NEOSTIGMINE METHYLSULFATE 1MG/ML IV ONE (07:42)
[2024-04-02] MEDS ORDERED: GLYCOPYRROLATE 0.2 MG/ML 5 ML VIAL ONE (07:42)
[2024-04-02] MEDS ORDERED: acetaMINOPHEN 100 ML ONE (08:27)
[2024-04-02] MEDS: BUPIvacaine/PF 0.25% 30ML VIAL IJ ONE (08:34)
--- NOTE | 2024-04-02 17:18 | OP ---
Operative Note: DATE OF PROCEDURE: 04/02/24 SURGEON: HERNAN HORTON MD KEG INSPECTOR: Rg Simons ANESTHESIA: General ANESTHESIOLOGIST/PRODUCT INTRODUCTION MANAGER: Kwame Stahl PREOPERATIVE DIAGNOSIS: Right elbow olecranon bursitis POSTOPERATIVE DIAGNOSIS: Right elbow olecranon bursitis PROCEDURE: Right olecranon bursectomy ESTIMATED BLOOD LOSS: <5 cc INDICATIONS: 69-year-old male with longstanding history of bilateral upper extremity masses along the ulnar border of his arms. 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 After discussion of the risks, benefits, and alternatives the patient voluntarily agreed to undergo the aforementioned procedure indicating in preoperative holding the regions in the right arm that were bothersome. DESCRIPTION OF PROCEDURE: Patient was properly identified in the preoperative holding area. Surgical site marking was verified and surgery consent reviewed. The patient was then taken to the operating room and placed in supine position on the OR table. After induction of general anesthesia, preoperative antibiotics were given, all bony prominences were well-padded, and a well padded tourniquet was applied but not inflated at this time. The left upper extremity was then prepped and draped in usual sterile fashion. Surgical time out was done verifying correct surgery, side, site, and location to be performed. We then began the procedure by exsanguinating the arm with an Esmarch and inflating the tourniquet to 250 mm Hg. We then made an approximately 12 cm long posterior midline incision, cheating slightly anteriorly in the region of the ulnar nerve, using a 15 blade. Here we came sharply down through the skin and subcutaneous tissue onto the olecranon bursa. We began elevating the flaps anteriorly and posteriorly using the Metzenbaum scissors releasing the bursal tissue from the skin and subcutaneous layer. Once we came around the mass in this manner we then began elevating it off of the fascia and periosteum of the ulna using a combination of tenotomies and 15 blade. We were able to excise a non discrete mass but also tissue that appeared to occupy the bursal tissue with the appearance of chalky white material like tophi deposits within this tissue. We then began dissecting along the ulnar border distally within the forearm towards the remainder of the mass. In total, the substance appeared in the combine tissues to be about 15 x 6 x 6 cm. Within the subcutaneous tissues, we encountered multiple areas of what appeared to be tophaceous deposits. These were excised from the subcutaneous tissue and the edge of the fascia. We then explored the wound with direct palpation and could identify no further masses or tophi. There appeared to be some deposits along the fascia over the triceps tendon insertion that we excised as well. At this point we thoroughly irrigated out the wound with normal saline. The subcutaneous tissue was closed using 2-0 Vicryl. Ángela-incisional local anesthetic was injected using 0.5% Marcaine. A running subcuticular 3-0 Monocryl for the skin with Dermabond applied over the top. Sterile soft dressing was applied. The tourniquet was then deflated. The patient was a wakened from anesthesia and taken to the recovery room in stable condition. HERNAN HORTON MD Apr 02, 2024 17:18
== END 2024-04-02 10:32 | disposition home or self-care (01) ==
LOC: DAH 05:45
PROVIDERS: ATTEND Student in an Organized Health Care Education/Training Program
DX: M70.21 Olecranon bursitis, right elbow (principal); M1A.0211 Idiopathic chronic gout, right elbow, with tophus (tophi); R22.31 Localized swelling, mass and lump, right upper limb; E78.5 Hyperlipidemia, unspecified; I12.9 Hypertensive chronic kidney disease with stage 1 through stage 4 chronic kidney disease, or unspecified chronic kidney disease; N18.9 Chronic kidney disease, unspecified; I45.10 Unspecified right bundle-branch block; M19.90 Unspecified osteoarthritis, unspecified site; Z96.653 Presence of artificial knee joint, bilateral; Z79.01 Long term (current) use of anticoagulants; Z79.899 Other long term (current) drug therapy; Z98.890 Other specified postprocedural states
CPT/HCPCS: 93005; 80048; 85025; 85610; 85730; 36415; 24105; 88304; J0665; A4663; A4649 ×2; J7120; J3010 ×2; J3490 ×2; J2003; J2250; J2704; J2405 ×2; J2710; J2371; J0690; A4930 ×3; A5120; A4215; A4223; A4222; A4221

== ENCOUNTER → 2024-08-10 | Outpatient (CLI) | payer OTHER ==
[~2024-08-10] MED LIST changes: +ACET-2079 PO
--- NOTE | 2024-08-10 12:43 | HMCIMG ---
CT ORB/ARIELLE/EAR W/O CONTRAST HISTORY: Acute suppurative otitis media with spontaneous rupture of ear drum, left e COMPARISON: Left ear pain TECHNIQUE: Multiple sequential high resolution axial and coronal images of temporal bones were obtained. Post processing coronal reconstruction images were also obtained. FINDINGS: Normal aeration of right middle ear and right mastoid L cells are noted. There is opacification of left middle ear and left mastoid L cells suggestive of left otomastoiditis. Internal auditory canals are grossly symmetric bilaterally. Both scuti are grossly intact. The ossicula chains are grossly intact bilaterally. Retropharyngeal soft tissue prominence is seen. There is deformity of the medial wall of the right orbit may be related to old trauma. IMPRESSION: 1. Findings suggestive of left otomastoiditis changes are seen. CT was performed with one or more following dose reduction techniques: automated exposure control, adjustment of the mA and kv according to patient's size, or use of a iterative reconstruction technique.
== END | disposition home or self-care (01) ==
LOC: RAH 10:28
PROVIDERS: ATTEND Internal Medicine
DX: H61.111 Acquired deformity of pinna, right ear (principal); H66.012 Acute suppurative otitis media with spontaneous rupture of ear drum, left ear
CPT/HCPCS: 70480

== ENCOUNTER → 2025-02-01 | Outpatient (CLI) | payer OTHER ==
--- NOTE | 2025-02-01 18:22 | HMCIMG ---
EXAM: MR Brain without Intravenous Contrast. CLINICAL HISTORY: 70-year-old male with abnormalities of gait and mobility. TECHNIQUE: Magnetic resonance images of the brain without intravenous contrast in multiple planes. CONTRAST: None. COMPARISON: None provided. FINDINGS: BRAIN: No restricted diffusion to indicate acute infarction. No intracranial mass or hemorrhage. No midline shift or extra-axial fluid collection. No cerebellar tonsillar ectopia. No abnormal enhancement. The central arterial and venous flow voids are patent. Moderate chronic ischemic changes. VENTRICLES: No hydrocephalus. ORBITS: The orbits are normal. SINUSES AND MASTOIDS: The sinuses and mastoid air cells are clear. BONES: No acute fracture or focal osseous lesion. Moderate atrophy. IMPRESSION: 1. No acute intracranial abnormality. 2. Moderate chronic ischemic changes and moderate atrophy. /[place]
== END | disposition home or self-care (01) ==
LOC: RAH 09:08
PROVIDERS: ATTEND Family Medicine
DX: I67.82 Cerebral ischemia (principal); G31.9 Degenerative disease of nervous system, unspecified; R26.89 Other abnormalities of gait and mobility
CPT/HCPCS: 70551

== ENCOUNTER → 2025-02-25 | Outpatient (CLI) | payer OTHER, MEDICARE ==
--- NOTE | 2025-03-02 09:49 | HMCIMG ---
EXAM: MRA Head Without IV contrast CLINICAL HISTORY: Patient presents with chronic paroxysmal hemicrania, not intractable. TECHNIQUE: Magnetic resonance angiography of the head was performed without intravenous contrast. Three-dimensional MIP reformations were obtained. CONTRAST: None. COMPARISON: None provided. FINDINGS: INTERNAL CAROTID ARTERIES: No significant stenosis. No aneurysm or arteriovenous malformation (AVM). ANTERIOR CEREBRAL ARTERIES: The left A1 segment is hypoplastic. No aneurysm, stenosis, or AVM. MIDDLE CEREBRAL ARTERIES: No significant stenosis. No aneurysm or AVM. POSTERIOR CEREBRAL ARTERIES: No significant stenosis. No aneurysm or AVM. BASILAR ARTERY: No significant stenosis. No aneurysm or AVM. VERTEBRAL ARTERIES: The right V4 segment is hypoplastic. No aneurysm, stenosis, or AVM. 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 No aneurysm, dissection, stenosis, or vascular malformation. /[place]
--- NOTE | 2025-03-02 09:49 | HMCIMG ---
EXAM: MRA Neck without Intravenous Contrast CLINICAL HISTORY: Patient presents with chronic paroxysmal hemicrania, not intractable. TECHNIQUE: Magnetic resonance angiography of the neck was performed without intravenous contrast. Three-dimensional MIP reformations were obtained for vascular assessment. CONTRAST: None. COMPARISON: None provided. FINDINGS: COMMON CAROTID ARTERIES: Eccentric atheromatous plaque in the right common carotid artery causing approximately 20???30% luminal narrowing. No dissection. INTERNAL CAROTID ARTERIES: Eccentric atheromatous plaque at the right internal carotid artery origin causing approximately 70???80% luminal narrowing. Eccentric atheromatous plaque in the left carotid bulb causing approximately 30???40% luminal narrowing. No dissection. EXTERNAL CAROTID ARTERIES: No occlusion or dissection. VERTEBRAL ARTERIES: Right vertebral artery is hypoplastic. No significant stenosis or dissection. BASILAR ARTERY: No significant stenosis or dissection. SOFT TISSUES: The visualized soft tissues are unremarkable. IMPRESSION: High-grade (70???80%) luminal narrowing at the origin of the right internal carotid artery secondary to eccentric atheromatous plaque. Moderate (30???40%) luminal narrowing at the left carotid bulb secondary to eccentric atheromatous plaque. Mild (20???30%) luminal narrowing in the right common carotid artery due to eccentric plaque. Hypoplastic right vertebral artery. /[place]
== END | disposition home or self-care (01) ==
LOC: RAH 10:47
PROVIDERS: ATTEND Family Medicine
DX: G44.049 Chronic paroxysmal hemicrania, not intractable (principal); I65.23 Occlusion and stenosis of bilateral carotid arteries; I70.90 Unspecified atherosclerosis
CPT/HCPCS: 70544; 70547